=== PATIENT | female | born 1940 | race Caucasian/White ===

== ENCOUNTER → 2017-08-04 15:23 | Outpatient (CLI) | payer MEDICARE, OTHER, SELFPAY ==
--- NOTE | 2017-08-04 15:25 | BI_ITS ---
MAMMOGRAPHY - BILATERAL SCREENING REASON FOR EXAM: Female, 77 years old. Routine annual screening examination. PERTINENT HISTORY: Non-contributory. TECHNIQUE: Digital bilateral breast damari (3D mammographic acquisition) in the CC and MLO projections. 2-D mediolateral oblique (MLO) and craniocaudad (CC) views of both breasts were obtained. CAD: Full Field Digital Mammography with Computer Added Detection was performed. COMPARISON: Comparison is made with prior study dated July 22, 2016 and December 18, 2014. FINDINGS: Breast Composition: The breasts are heterogeneously dense, which may obscure small masses. There are no dominant masses or suspicious calcifications. Stable scattered bilateral calcifications. No other significant abnormalities are identified. There has been no significant change since the prior study. BI/SCREENING MAMM (CAD), BILAT IMPRESSION: Stable bilateral screening mammogram. Yearly follow-up mammogram recommended. (A) ASSESSMENT CATEGORY: BIRADS Category 2: Benign. A letter regarding these results will be sent to the patient by the facility within 30 days. Approximately 10% of breast cancers are not detected by mammography. A normal mammogram should not delay biopsy of a clinically suspicious abnormality. [id number] Electronically Signed: Clovis Dick MD at 10:49 EDT Tel [phone], Service support ,
== END ==
PROVIDERS: Family Provider Family Medicine; PCP Family Medicine; Visit Provider Family Medicine
DX: Z12.31 Encounter for screening mammogram for malignant neoplasm of breast (principal)
CPT/HCPCS: 77063; 77067

== ENCOUNTER → 2017-12-28 11:24 | Outpatient (CLI) | payer MEDICARE, OTHER, SELFPAY ==
[2017-12-28 13:59] LABS: Absolute Lymphocyte Count 1.72 X10^3/ul (0.83-4.51); Absolute Neutrophil Count 3.3 X10^3/uL (2.0-7.7); Basophil# 0.03 X10^3/uL; Basophil% 0.5 % (0-1); Eosinophils% 3.4 % (0-5); Hematocrit 45.6 % (37-47); Hemoglobin 14.5 g/dl (12.0-15.0); Lymphocyte # 1.72 X10^3/ul (4.0); Lymphocyte % 29.5 % (19-41); Mean Corp Hgb Conc 31.8 g/gl (32-36); Mean Corpuscular Hgb 28.7 pg (27.0-32.0); Mean Corpuscular Volume 90.1 fL (81-99); Mean Platelet Vol. 10.9 fl (6.2-12.0); Monocyte# 0.54 X10^3/uL; Monocyte% 9.2 % (0-10); Neutrophil # 3.34 X10^3/uL (2.7-7.7); Neutrophil % 57.2 % (47-70); Platelet Count 192 K/mm3 (150-450); RBC Distribution Width CV 15.1 % (11.6-14.6); RBC Distribution Width SD 49.5 fl (35.1-43.9); Red Blood Count 5.06 M/mm3 (4.2-5.4); White Blood Count 5.8 K/mm3 (4.4-11.0)
[2017-12-28 14:03] LABS: POSITIVE COUNT NO; POSITIVE DIFFERENTIAL NO; POSITIVE MORPHOLOGY NO
[2017-12-28 14:27] LABS: Anion Gap 10 (5-15); BUN 20 mg/dL (7-18); BUN/Creat Ratio 25.9 RATIO (10-20); Calcium,Total 8.9 mg/dL (8.5-10.1); Chloride 107 mmol/L (98-107); Cholesterol 158 mg/dL (200); Creatinine, Serum 0.77 mg/dL (0.55-1.02); EST Glomerular Filtration Rate 77 mL/min (>60); Est Glom Filt Rate - Afr Amer 93 mL/min (>60); Glucose 77 mg/dL (74-106); High Density Lipoprotein 61 mg/dL; Potassium 4.1 mmol/L (3.5-5.1); Sodium Level 144 mmol/L (136-145); Thyroid Stim Hormone (TSH) 0.27 uIU/mL (0.358-3.74); Triglycerides 76 mg/dL; Very Low Density Lipoprotein 15 mg/dL (5-40)
[2017-12-29 08:34] LABS: Vitamin D,25 Hydroxy 14.1 ng/mL (29.95-100.01)
== END ==
PROVIDERS: Family Provider Family Medicine; PCP Family Medicine; Visit Provider Family Medicine
DX: E78.00 Pure hypercholesterolemia, unspecified (principal); I10 Essential (primary) hypertension; E03.9 Hypothyroidism, unspecified
CPT/HCPCS: 36415; 80048; 80061; 82306; 84443; 85025

== ENCOUNTER 2018-01-08 04:38 | Emergency (ER) | payer MEDICARE, OTHER, SELFPAY ==
[2018-01-08 04:39] VITALS: BP 178/112; PULSE 75; RESP 18; TEMP 36.2; O2SAT 98; BMI 29.7
--- NOTE | 2018-01-08 04:46 | CT_ITS ---
STUDY: CT ABDOMEN AND PELVIS WITHOUT CONTRAST REASON FOR EXAM: Female, 77 years old. Flank pain RADIATION DOSAGE (If Supplied By Facility): CTDIvol = ( 10.95 ) mGy, DLP = ( 549.79 ) mGycm TECHNIQUE: Transaxial images were obtained from the dome of the diaphragm to the symphysis pubis without oral contrast, and without intravenous contrast. Sagittal and coronal images were reconstructed. Individualized dose optimization techniques were used for this CT. COMPARISON: None. FINDINGS: The visualized lung bases are unremarkable. The visualized portions of the heart are within normal limits. Normal liver. There are gallstones. There is NO cholecystitis or biliary ductal dilatation. Normal spleen. Normal pancreas. Normal bilateral adrenal glands. There is a 6 x 8 mm stone in the proximal LEFT ureter causing LEFT hydronephrosis. 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 Largest is on the LEFT measuring 2 cm. Normal visualized stomach. Normal small intestine. There is diverticulosis of the sigmoid and LEFT colon. There is NO diverticulitis or colitis. The appendix is visualized and appears normal. Normal abdominal aorta. Normal inferior vena cava. Normal retroperitoneum. Normal urinary bladder. There has been a hysterectomy. There is NO ascites or free air, abscess or adenopathy. Normal abdominal wall. Normal osseous structures. CT/Abdomen/Pelvis without Cont IMPRESSION: There are gallstones. There is NO cholecystitis or biliary ductal dilatation. There is a 6 x 8 mm stone in the proximal LEFT ureter causing LEFT hydronephrosis. 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 Largest is on the LEFT measuring 2 cm. There is diverticulosis of the sigmoid and LEFT colon. There is NO diverticulitis or colitis. The appendix is visualized and appears normal. There has been a hysterectomy. There is NO ascites or free air, abscess or adenopathy. Electronically Signed: Juventino Peck MD at 5:40 EDT , Service support ,
--- NOTE | 2018-01-08 04:48 | ED.VISSUMM ---
- ER Visit Summary Date of Service: 01/08/18 Chief Complaint: Left flank pain History of Present Illness: The patient is a 77 F sudden left flank pain awakening her at 3 AM. Pain radiates to the groin. It has been intermittent however more intense, 7-8 out of 10. No urinary symptoms. History of kidney stones years ago states had lithotripsy previously. This is 15 years ago. That was her first stone. History of hypertension, hypercholesterolemia. No history of gastric ulcers or kidney injury. No fevers. Nausea with dry heaving. No allergies. Patient does take baby aspirin. Physical Examination: General: Alert and oriented ?3, no acute distress HEENT: Normocephalic, atraumatic. Moist mucosa membranes Neck: supple, nontender. Cardiovascular: Regular rate and rhythm, no murmurs Respiratory: Normal breath sounds, symmetric, no distress Abdomen: Soft, nontender, nondistended, no guarding or rebound Back: No CVA tenderness, no rash. Extremities: Nontender, no edema, pulses intact ?4 Neuro: no focal neurological deficits. Test Results: White count 9.6. Hemoglobin 14.5. Platelets 215. Creatinine 0.91. Urine leukocytes 25, blood 250. White blood cell count 0-5. Urine culture sent. CT scan abdomen pelvis 6 x 8 mm proximal left urolithiasis with hydronephrosis. Emergency Department Course and Treatment: Patient flank pain radiating suddenly. Renal stone protocol initiated. Fluids Zofran Toradol morphine given. Pain controlled. Workup notes proximal urolithiasis left side 6 x 8 mm. She started on Flomax. Urine only showed 25 leukocytes. No symptoms. Urine culture sent. Discussed with covering urologist Dr. Bobby, updated on size and location. States typically would do intervention however with symptoms control will plan on outpatient. Patient will call on Wednesday. Prescriptions written for symptom control. Signs and symptoms discussed to return. All questions were answered. Treatment Plan: [] Disposition: Discharge Impression: 1. Left urolithiasis This note was generated with [employer] dictation software. It may contain incorrect words, spelling, and punctuation that were not noted in review of the chart prior to signing ED Disposition - Plan for ED Patient: Disposition: Home or Assisted Living Chief Complaint: Flank Pain Diagnosis: Urolithiasis Instructions: ED Stone Renal W Colic Prescriptions: Oxycodone HCl/Acetaminophen [Percocet 5/325] 1 tablet PO Q6H PRN PRN 3 Days #12 tablet PRN Reason: Pain Ondansetron [Zofran Odt] 8 mg PO Q8H PRN PRN #10 tab PRN Reason: Nausea Docusate Sodium [Colace] 100 mg PO DAILY #20 capsule Naproxen [Naprosyn] 500 mg PO BID PRN #20 tablet Tamsulosin HCl [Flomax] 0.4 mg PO DAILY #7 cap.er.24h Referrals: Chris Mora MD [Primary Care Provider] - Cecy Bobby MD [STAFF PHYSICIAN] - 2 Days Additional Instructions: 8 x 6 mm proximal ureteral lithiasis. Take medications as prescribed. Call on Wednesday for follow-up. Return if any worsening symptoms.
[2018-01-08 04:54] LABS: Absolute Lymphocyte Count 2.38 X10^3/ul (0.83-4.51); Absolute Neutrophil Count 5.7 X10^3/uL (2.0-7.7); Basophil# 0.11 X10^3/uL; Basophil% 1.2 % (0-1); Eosinophil# 0.29 X10^3/uL; Hematocrit 44.1 % (37-47); Hemoglobin 14.5 g/dl (12.0-15.0); Lymphocyte # 2.38 X10^3/ul (4.0); Lymphocyte % 24.9 % (19-41); Mean Corp Hgb Conc 32.9 g/gl (32-36); Mean Corpuscular Hgb 29.3 pg (27.0-32.0); Mean Corpuscular Volume 89.1 fL (81-99); Mean Platelet Vol. 10.4 fl (6.2-12.0); Monocyte# 1.04 X10^3/uL; Monocyte% 10.9 % (0-10); Neutrophil # 5.71 X10^3/uL (2.7-7.7); Neutrophil % 59.8 % (47-70); Platelet Count 215 K/mm3 (150-450); RBC Distribution Width CV 14.9 % (11.6-14.6); RBC Distribution Width SD 48.2 fl (35.1-43.9); Red Blood Count 4.95 M/mm3 (4.2-5.4); White Blood Count 9.6 K/mm3 (4.4-11.0)
[2018-01-08 04:55] LABS: POSITIVE COUNT NO; POSITIVE DIFFERENTIAL NO; POSITIVE MORPHOLOGY NO
[2018-01-08] MEDS: Ondansetron 4 MG/2 ML Vial IV (04:56)
[2018-01-08] MEDS: 0.9% Normal Saline 1,000 ML 250 ML IV (04:56)
[2018-01-08] MEDS: Ketorolac 30 MG/ML Syringe IV (04:56)
[2018-01-08] MEDS: Morphine 4 MG/ML Syringe IV (04:57)
[2018-01-08 05:14] LABS: Anion Gap 9 (5-15); BUN 20 mg/dL (7-18); BUN/Creat Ratio 21.9 RATIO (10-20); Calcium,Total 9.1 mg/dL (8.5-10.1); Chloride 105 mmol/L (98-107); Creatinine, Serum 0.91 mg/dL (0.55-1.02); EST Glomerular Filtration Rate 63 mL/min (>60); Est Glom Filt Rate - Afr Amer 77 mL/min (>60); Estimated Creatinine Clearance 42.83 ml/min; Glucose 111 mg/dL (74-106); Potassium 3.8 mmol/L (3.5-5.1); Sodium Level 143 mmol/L (136-145)
[2018-01-08 05:47] LABS: Mucous, Urine 0 SEEN /hpf (<or=2+)
[2018-01-08 05:50] LABS: Color, Urine Yellow (Yellow); Glucose, Dipstick Normal (Normal); Ketone-Dipstick Negative (Negative); Leukocyte Esterase-Dipstick 25 /ul (Negative); Nitrite-Dipstick Negative (Negative); Occult Blood-Urine 250 /ul (Negative); Protein-Dipstick 30 mg/dl (Negative); Specific Gravity, Urine 1.025 (1.002-1.030); Urine Bilirubin Dipstick Negative (Negative); Urine Clarity Cloudy (Clear); Urine Urobilinogen Normal (Normal)
[2018-01-08 05:57] LABS: Squamous Epithelial Cells - UA 0-5 SEEN /hpf (5-10)
[2018-01-08 05:58] LABS: Hyaline Cast 0-5 SEEN /lpf (0-5)
[2018-01-08] MEDS: Tamsulosin HCl 0.4 MG Capsule PO (05:59)
[2018-01-08 06:01] LABS: Bacteria 1+ /hpf (None Seen); Red Blood Cells-Urine > 100 SEEN /hpf (0-5); White Blood Cells 0-5 SEEN /hpf (0-5)
[2018-01-08 06:22] VITALS: BP 139/86; PULSE 68; RESP 18; O2SAT 98
== END 2018-01-08 06:33 | disposition home or self-care (01) ==
PROVIDERS: Emergency Provider Emergency Medicine; Family Provider Family Medicine; PCP Family Medicine
DX: N13.2 Hydronephrosis with renal and ureteral calculous obstruction (principal); Z87.442 Personal history of urinary calculi; I10 Essential (primary) hypertension; E78.00 Pure hypercholesterolemia, unspecified; Z79.82 Long term (current) use of aspirin; Z79.899 Other long term (current) drug therapy
CPT/HCPCS: 74176; 80048; 81001; 85025; 87086; 87088; 96361; 96374; 96375; 99285; J7030; J2405

== ENCOUNTER → 2018-01-11 15:13 | Outpatient (CLI) | payer MEDICARE, OTHER, SELFPAY ==
--- NOTE | 2018-01-11 15:17 | RAD_ITS ---
STUDY: X-RAY - ABDOMEN/PELVIS REASON FOR EXAM: Female, 77 years old. Ureteral stone. TECHNIQUE: Two AP supine views of the abdomen and pelvis. COMPARISON: CT abdomen and pelvis January 08, 2018. FINDINGS: Poorly visualized lung bases. There is an unremarkable bowel gas pattern. There is no demonstrated free abdominal air. Lamellated 3.8 x 2.3 cm rim calcified structure in the right upper quadrant correlates to the gallstone noted on prior CT. There are 2 small calcifications projecting to the left of the L4-5 interspace, one measuring right-9 mm and the other measuring 3-4 mm. Either of these may correlate to the stone seen in the left ureter on CT, having progressed a few centimeters distally since that exam. The visualized liver, spleen and kidneys are otherwise grossly normal in size and morphology. There are faint calcified phleboliths in the pelvis. There are stable degenerative changes of the lower lumbar spine, left sacroiliac joint, and pubic symphysis. RAD/Abdomen Single View IMPRESSION: 1. Calcifications to the left of the L4-5 disc space, the larger likely correlating to the left ureteral stone seen by CT, now having progressed a few centimeters since that exam. 2. Lamellated rim calcified 3.8 cm gallstone again identified. 3. Nonspecific bowel gas pattern. Electronically Signed: Russ Pimentel MD at 16:24 EDT , Service support ,
== END ==
PROVIDERS: Family Provider Family Medicine; PCP Family Medicine; Visit Provider Urology
DX: N20.1 Calculus of ureter (principal); K80.80 Other cholelithiasis without obstruction
CPT/HCPCS: 74018

== ENCOUNTER → 2018-01-17 11:35 | Outpatient (CLI) | payer MEDICARE, OTHER, SELFPAY ==
--- NOTE | 2018-01-17 11:39 | RAD_ITS ---
STUDY: X-RAY - ABDOMEN/PELVIS REASON FOR EXAM: Female, 77 years old. Left kidney stone. TECHNIQUE: Two AP supine views of the abdomen and pelvis. COMPARISON: Comparison is made with prior study dated January 11, 2018. FINDINGS: There is a moderate amount of colonic fecal material. Stable calcified. The previously seen calcification overlying the transverse processes of the L4 vertebrae is not seen at this time. It presently seen in the left hemipelvis most likely at the left ureterovesical junction. This measures 3.5 mm. Normal soft tissue structures. Normal visualized osseous structures. RAD/Abdomen Single View IMPRESSION: 3.5 mm calcific density in the left hemipelvis most likely within the distal left ureter. Clinical correlation is recommended. Electronically Signed: Clovis Dick MD at 15:21 EDT Tel [phone], Service support ,
== END ==
PROVIDERS: Family Provider Family Medicine; PCP Family Medicine; Visit Provider Urology
DX: N20.0 Calculus of kidney (principal)
CPT/HCPCS: 74018

== ENCOUNTER → 2018-02-21 12:57 | Outpatient (CLI) | payer MEDICARE, OTHER, SELFPAY | PROVIDERS: Family Provider Family Medicine; PCP Family Medicine; Visit Provider Urology | DX: Z01.818 Encounter for other preprocedural examination (principal) ==

== ENCOUNTER → 2018-03-23 14:44 | Outpatient (CLI) | payer MEDICARE, OTHER, SELFPAY ==
--- OUTSIDE RECORDS SUMMARY | 2018-05-19 00:48 | XMS RPT_ITS ---
:1940 Author Organization OHIP Support Name Relationship Address Phone SHARIF DORADO Unavailable [address] + [place] [address] KIERA DORADO Unavailable Unavailable + R Unavailable Unavailable Unavailable SHARIF DORADO Unavailable [address] + [place] [address] KIERA DORADO Unavailable Unavailable + R Unavailable Unavailable Unavailable SHARIF DORADO Unavailable [address] + [place] [address] KIERA DORADO Unavailable Unavailable + R Unavailable Unavailable Unavailable PHILL CASTILLOA Unavailable [address] + [place] [address] SHARIF DORADO Unavailable [address] + [place] [address] R Unavailable Unavailable Unavailable PHILL CASTILLOA Unavailable [address] + [place] [address] SHARIF DORADO Unavailable [address] + [place] [address] R Unavailable Unavailable Unavailable PHILL CASTILLOA Unavailable [address] + [place] [address] SHARIF DORADO Unavailable [address] + [place] [address] R Unavailable Unavailable Unavailable PHILL CASTILLOA Unavailable [address] + [place] [address] SHARIF DORADO Unavailable [address] + [place] [address] R Unavailable Unavailable Unavailable Care Team Providers Name Role Phone Chris Mora Attending Unavailable Chris Mora Referring Unavailable Chris Mora Primary Care Unavailable Chris Mora Attending Unavailable Chris Mora Primary Care Unavailable Chris Mora Primary Care Unavailable Low Cooper Attending Unavailable Cecy Bobby Attending Unavailable Cecy Bobby Referring Unavailable Chris Mora Primary Care Unavailable Cecy Bobby Attending Unavailable Cecy Bobby Referring Unavailable Chris Mora Primary Care Unavailable Cecy Bobby Attending Unavailable Cecy Bobby Referring Unavailable Chris Mora Primary Care Unavailable Chris Mora Attending Unavailable Chris Mora Primary Care Unavailable PROBLEMS PROBLEMS DATE TYPE CONDITION / CODE ATTENDING STATUS SOURCE 01/17/2018 Unknown N20.0 - Calculus Cecy Bobby Active [facility] Community N20.0(ICD-10) Hospital Repository 01/11/2018 Unknown N20.1 - Calculus Cecy Bobby Active [facility] of ureter / Community N20.1(ICD-10) Hospital Repository 01/08/2018 Unknown N20.9 - Urinary Le, Low Active [facility] calculus, Community unspecified / Hospital N20.9(ICD-10) Repository PROCEDURES PROCEDURES No Procedure Records FoundRESULTS RESULTS VITAMIN D,25 HYDROXY Collected: 03/23/2018 Status: F Source: [place] 2:45 PM [facility] Order Comment: Order Date: 12/31/17 Order Info: 42998-8 - VITD25 TYPE CODE TESTS RESULT OUT OF RANGE REFERENCE UNITS LAB L506.1000 29.95-100.01 ng/mL Normal Vitamin D 36.0 25-OH Result Comment: Vitamin D 25(OH) Status Range Deficiency <20 ng/mL (50nmol/L) Insuffciency 20 - 30 ng/mL (50 - 75 nmol/L) Sufficiency 30 - 100 ng/mL (75 - 250 nmol/L) Toxicity >100 ng/mL (>250 nmol/L) Performed By: #### L506.1000 #### [facility] [address] [place], [address] ABDOMEN SINGLE VIEW Observed: 01/17/2018 Status: F Source: [place] 11:40 AM [facility] Imaging Services [address] [place] [address] Abdomen Single View MR#: [id number] Acct: [id number] Name: BENITA DORADO Rep #: [id number] : 1940 F 77 From: Clovis Dick MD PCP: Chris Mora MD Status: REG CLI Study: Abdomen Single View Date of Exam: 01/17/18 Exam# [id number] Ordering Dr: Cecy Bobby MD STUDY: X-RAY - ABDOMEN/PELVIS REASON FOR EXAM: Female, 77 years old. Left kidney stone. TECHNIQUE: Two AP supine views of the abdomen and pelvis. COMPARISON: Comparison is made with prior study dated January 11, 2018. FINDINGS: There is a moderate amount of colonic fecal material. Stable calcified. The previously seen calcification overlying the transverse processes of the L4 vertebrae is not seen at this time. It presently seen in the left hemipelvis most likely at the left ureterovesical junction. This measures 3.5 mm. Normal soft tissue structures. Normal visualized osseous structures. RAD/Abdomen Single View IMPRESSION: 3.5 mm calcific density in the left hemipelvis most likely within the distal left ureter. Clinical correlation is recommended. Electronically Signed: Clovis Dick MD at 15:21 EDT Tel [phone], Service support , CC: Cecy Bobby MD; Chris Mora MD Selling Underwriter: Signed ABDOMEN SINGLE VIEW Observed: 01/11/2018 Status: F Source: [place] 3:17 PM [facility] Imaging Services [address] [place] [address] Abdomen Single View MR#: [id number] Acct: [id number] Name: BENITA DORADO Rep #: [id number] : 1940 F 77 From: Germain Pimentel MD PCP: Chris Mora MD Status: REG CLI Study: Abdomen Single View Date of Exam: 01/11/18 Exam# [id number] Ordering Dr: Cecy Bobby MD STUDY: X-RAY - ABDOMEN/PELVIS REASON FOR EXAM: Female, 77 years old. Ureteral stone. TECHNIQUE: Two AP supine views of the abdomen and pelvis. COMPARISON: CT abdomen and pelvis January 08, 2018. FINDINGS: Poorly visualized lung bases. There is an unremarkable bowel gas pattern. There is no demonstrated free abdominal air. Lamellated 3.8 x 2.3 cm rim calcified structure in the right upper quadrant correlates to the gallstone noted on prior CT. There are 2 small calcifications projecting to the left of the L4-5 interspace, one measuring right-9 mm and the other measuring 3-4 mm. Either of these may correlate to the stone seen in the left ureter on CT, having progressed a few centimeters distally since that exam. The visualized liver, spleen and kidneys are otherwise grossly normal in size and morphology. There are faint calcified phleboliths in the pelvis. There are stable degenerative changes of the lower lumbar spine, left sacroiliac joint, and pubic symphysis. RAD/Abdomen Single View IMPRESSION: 1. Calcifications to the left of the L4-5 disc space, the larger likely correlating to the left ureteral stone seen by CT, now having progressed a few centimeters since that exam. 2. Lamellated rim calcified 3.8 cm gallstone again identified. 3. Nonspecific bowel gas pattern. Electronically Signed: Russ Pimentel MD at 16:24 EDT , Service support , CC: Cecy Bobby MD; Chris Mora MD Selling Underwriter: Signed EMERGENCY DEPARTMENT Observed: 01/08/2018 Status: F Source: [place] SUMMARY 6:25 AM [facility] Medical Records Department [address] [place] [address] Emergency Department Summary 01/08/18 0448 MR#: [id number] Acct: [id number] Name: BENITA DORADO Rep #: [id number] : 1940 77 From: Low Norton PCP: Chris Mora MD Status: REG ER - ER Visit Summary Date of Service: 01/08/18 Chief Complaint: Left flank pain History of Present Illness: The patient is a 77 F sudden left flank pain awakening her at 3 AM. Pain radiates to the groin. It has been intermittent however more intense, 7-8 out of 10. No urinary symptoms. History of kidney stones years ago states had lithotripsy previously. This is 15 years ago. That was her first stone. History of hypertension, hypercholesterolemia. No history of gastric ulcers or kidney injury. No fevers. Nausea with dry heaving. No allergies. Patient does take baby aspirin. Physical Examination: General: Alert and oriented 3, no acute distress HEENT: Normocephalic, atraumatic. Moist mucosa membranes Neck: supple, nontender. Cardiovascular: Regular rate and rhythm, no murmurs Respiratory: Normal breath sounds, symmetric, no distress Abdomen: Soft, nontender, nondistended, no guarding or rebound Back: No CVA tenderness, no rash. Extremities: Nontender, no edema, pulses intact 4 Neuro: no focal neurological deficits. Test Results: White count 9.6. Hemoglobin 14.5. Platelets 215. Creatinine 0.91. Urine leukocytes 25, blood 250. White blood cell count 0-5. Urine culture sent. CT scan abdomen pelvis 6 x 8 mm proximal left urolithiasis with hydronephrosis. Emergency Department Course and Treatment: Patient flank pain radiating suddenly. Renal stone protocol initiated. Fluids Zofran Toradol morphine given. Pain controlled. Workup notes proximal urolithiasis left side 6 x 8 mm. She started on Flomax. Urine only showed 25 leukocytes. No symptoms. Urine culture sent. Discussed with covering urologist Dr. Bobby, updated on size and location. States typically would do intervention however with symptoms control will plan on outpatient. Patient will call on Wednesday. Prescriptions written for symptom control. Signs and symptoms discussed to return. All questions were answered. Treatment Plan: [] Disposition: Discharge Impression: 1. Left urolithiasis This note was generated with Tagora dictation software. It may contain incorrect words, spelling, and punctuation that were not noted in review of the chart prior to signing ED Disposition - Plan for ED Patient: Disposition: Home or Assisted Living Chief Complaint: Flank Pain Diagnosis: Urolithiasis Instructions: ED Stone Renal W Colic Prescriptions: Oxycodone HCl/Acetaminophen [Percocet 5/325] 1 tablet PO Q6H PRN PRN 3 Days #12 tablet PRN Reason: Pain Ondansetron [Zofran Odt] 8 mg PO Q8H PRN PRN #10 tab PRN Reason: Nausea Docusate Sodium [Colace] 100 mg PO DAILY #20 capsule Naproxen [Naprosyn] 500 mg PO BID PRN #20 tablet Tamsulosin HCl [Flomax] 0.4 mg PO DAILY #7 cap.er.24h Referrals: Chris Mora MD [Primary Care Provider] - Cecy Bobby MD [STAFF PHYSICIAN] - 2 Days Additional Instructions: 8 x 6 mm proximal ureteral lithiasis. Take medications as prescribed. Call on Wednesday for follow-up. Return if any worsening symptoms. What to do if you have Problems For any increased pain, shortness of breath, bleeding, nausea or vomiting, chest pain, or any unexpected problems, contact your Primary Care Provider. Call [facility] ([phone]) or report to the closest Emergency Room. Call 911 if necessary. 01/08/18 0625 <Electronically signed by Low Norton> Date Low Norton Cosigner Signature (If Indicated): Date CC: Chris Mora MD URINALYSIS, COMPLETE Collected: 01/08/2018 Status: F Source: [place] 5:40 AM [facility] Order Comment: How was Urine Obtained? CLEAN CATCH TYPE CODE TESTS RESULT OUT OF RANGE REFERENCE UNITS LAB L400.3000 Yellow COLOR Normal Yellow LAB L400.3050 Clear Normal CLARITY Cloudy LAB L400.3200 Normal mg/dl Normal GLUCOSE, UR Normal LAB L400.3300 Negative mg/dL Normal BILIRUBIN URINE Negative LAB L400.3400 Negative mg/dl Normal KETONE UR Negative LAB L400.3465 1.002-1.030 Normal SP.GR. DIPSTX 1.025 LAB L400.3550 5.0 - 8.0 pH UR Normal 5.0 LAB L400.3600 Negative mg/dl High PROT 30 DIPSTX LAB L400.3700 Normal mg/dl Normal UROBILI Normal LAB L400.3750 Negative Normal NITRITE UR Negative LAB L400.3780 Negative /ul High OCCULT BLOOD-UR 250 LAB L400.3800 Negative /ul High LEUK 25 ESTERASE LAB L400.4050 0-5 /hpf WBC Normal 0-5 SEEN LAB L400.4100 0-5 /hpf > Normal RBC-UA 100 SEEN LAB L400.4150 5-10 /hpf SQUAM Normal EPI 0-5 SEEN LAB L400.4300 None Seen /hpf 1+ Normal BACTERIA LAB L400.4350 <or=2+ /hpf 0 Normal MUCUS, URINE SEEN LAB L400.4400 0-5 /lpf Normal HYALINE CAST 0-5 SEEN Performed By: #### L400.0001 #### [facility] [address] [place], [address] Observed: 01/08/2018 Status: F Source: [place] CULTURE, URINE 5:40 AM [facility] Urine Culture ORGANISM 1: Gram negative gautam [place] Count <1000 ORGANISM 2: Mixed Gram Positive Organisms [place] Count >100,000 MIX CULTURE Mixed contaminants. Submit a new specimen if indicated. Performed By: #### M100.0650 #### [facility] [address] [place], [address] ABDOMEN/PELVIS WITHOUT Observed: 01/08/2018 Status: F Source: [place] CONT 4:47 AM [facility] Imaging Services [address] [place] [address] Abdomen/Pelvis without Cont MR#: [id number] Acct: [id number] Name: BENITA DORADO Rep #: [id number] : 1940 F 77 From: Juventino Peck PCP: Chris Mora MD Status: REG ER Study: Abdomen/Pelvis without Cont Date of Exam: 01/08/18 Exam# [id number] Ordering Dr: Lwo Cooper DO STUDY: CT ABDOMEN AND PELVIS WITHOUT CONTRAST REASON FOR EXAM: Female, 77 years old. Flank pain RADIATION DOSAGE (If Supplied By Facility): CTDIvol = ( 10.95 ) mGy, DLP = ( 549.79 ) mGycm TECHNIQUE: Transaxial images were obtained from the dome of the diaphragm to the symphysis pubis without oral contrast, and without intravenous contrast. Sagittal and coronal images were reconstructed. Individualized dose optimization techniques were used for this CT. COMPARISON: None. FINDINGS: The visualized lung bases are unremarkable. The visualized portions of the heart are within normal limits. Normal liver. There are gallstones. There is NO cholecystitis or biliary ductal dilatation. Normal spleen. Normal pancreas. Normal bilateral adrenal glands. There is a 6 x 8 mm stone in the proximal LEFT ureter causing LEFT hydronephrosis. 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 Largest is on the LEFT measuring 2 cm. Normal visualized stomach. Normal small intestine. There is diverticulosis of the sigmoid and LEFT colon. There is NO diverticulitis or colitis. The appendix is visualized and appears normal. Normal abdominal aorta. Normal inferior vena cava. Normal retroperitoneum. Normal urinary bladder. There has been a hysterectomy. There is NO ascites or free air, abscess or adenopathy. Normal abdominal wall. Normal osseous structures. CT/Abdomen/Pelvis without Cont IMPRESSION: There are gallstones. There is NO cholecystitis or biliary ductal dilatation. There is a 6 x 8 mm stone in the proximal LEFT ureter causing LEFT hydronephrosis. 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 Largest is on the LEFT measuring 2 cm. There is diverticulosis of the sigmoid and LEFT colon. There is NO diverticulitis or colitis. The appendix is visualized and appears normal. There has been a hysterectomy. There is NO ascites or free air, abscess or adenopathy. Electronically Signed: Juventino Peck MD at 5:40 EDT , Service support , CC: Chris Mora MD; Low Cooper Selling Underwriter: Signed CBC W/DIFF, AUTOMATED Collected: 01/08/2018 Status: F Source: [place] 4:44 AM [facility] TYPE CODE TESTS RESULT OUT OF RANGE REFERENCE UNITS LAB L100.1000 4.4-11.0 K/mm3 Normal WBC 9.6 LAB L100.1200 4.2-5.4 M/mm3 Normal RBC 4.95 LAB L100.1300 12.0-15.0 g/dl Normal HGB 14.5 LAB L100.1400 37-47 % Normal HCT 44.1 LAB L100.1500 81-99 fL Normal MCV 89.1 LAB L100.1600 27.0-32.0 pg Normal MCH 29.3 LAB L100.1700 32-36 g/gl Normal MCHC 32.9 LAB L100.1810 11.6-14.6 % High RDW CV 14.9 LAB L100.1820 35.1-43.9 fl High RDW SD 48.2 LAB L100.1900 150-450 K/mm3 Normal PLT 215 LAB L100.2000 6.2-12.0 fl Normal MPV 10.4 LAB L100.2100 47-70 % Normal NEUT% 59.8 LAB L100.2200 19-41 % Normal LY% 24.9 LAB L100.2300 0-10 % High MONO% 10.9 LAB L100.2400 0-5 % Normal EO% 3.0 LAB L100.2500 0-1 % High BASO% 1.2 LAB L100.2550 0.0-0.9 % Normal IM GRAN % 0.200 Result Comment: IG% - Immature Granulocytes (promyelocytes, myelocytes and metamyelocytes) > 1% indicates that a LEFT SHIFT is Present. LAB L100.2620 2.0-7.7 X10 3/uL Normal Absolute Neut 5.7 LAB L100.2720 0.83-4.51 X10 3/ul Normal Absolute Lymph 2.38 Performed By: #### L100.0100 #### [facility] [address], [address] BASIC METABOLIC Collected: 01/08/2018 Status: F Source: [place] PROFILE (BMP) 4:44 AM [facility] TYPE CODE TESTS RESULT OUT OF RANGE REFERENCE UNITS LAB L501.0100 74-106 mg/dL High GLU 111 Result Comment: Fasting Glucose result from 100 to 125 mg/dL suggests IMPAIRED HOMEOSTASIS per A.D.A. criteria. Please note revised GLUCOSE reference range effective 2017. LAB L501.1000 7-18 mg/dL High BUN 20 LAB L501.1100 0.55-1.02 mg/dL Normal CREAT,SERUM 0.91 Result Comment: The validity of the calculated GFR AND GFRAA in patients over 70 years has not been determined. Clinical correlation is essential. LAB L501.1110 >60 mL/min Normal EST GFR 63 Result Comment: Non- GFR Calc LAB L501.1115 >60 mL/min Normal EST GFR - AA 77 Result Comment: GFR Calc LAB L501.1255 ml/min Normal Estimated CRCL 42.83 LAB L501.1300 10-20 RATIO High BUN/CRE 21.9 LAB L501.2200 8.5-10 mg/dL Normal .1 CA 9.1 LAB L501.5300 136-14 mmol/L Normal 5 NA 143 LAB L501.5600 3.5-5. mmol/L Normal 1 K 3.8 LAB L501.5900 98-107 mmol/L Normal CL 105 LAB L501.6100 21.0-3 mmol/L Normal 2.0 CO2 29.0 LAB L501.6200 5-15 Normal GAP 9 Performed By: #### L500.2500 #### [facility] [address] [place], [address] CBC W/DIFF, AUTOMATED Collected: 12/28/2017 Status: F Source: [place] 11:25 AM [facility] Order Comment: Order Date: 07/08/17 Order Info: 0184-1 - CBCD TYPE CODE TESTS RESULT OUT OF RANGE REFERENCE UNITS LAB L100.1000 4.4-11.0 K/mm3 Normal WBC 5.8 LAB L100.1200 4.2-5.4 M/mm3 Normal RBC 5.06 LAB L100.1300 12.0-15.0 g/dl Normal HGB 14.5 LAB L100.1400 37-47 % Normal HCT 45.6 LAB L100.1500 81-99 fL Normal MCV 90.1 LAB L100.1600 27.0-32.0 pg Normal MCH 28.7 LAB L100.1700 32-36 g/gl Low MCHC 31.8 LAB L100.1810 11.6-14.6 % High RDW CV 15.1 LAB L100.1820 35.1-43.9 fl High RDW SD 49.5 LAB L100.1900 150-450 K/mm3 Normal PLT 192 LAB L100.2000 6.2-12.0 fl Normal MPV 10.9 LAB L100.2100 47-70 % Normal NEUT% 57.2 LAB L100.2200 19-41 % Normal LY% 29.5 LAB L100.2300 0-10 % Normal MONO% 9.2 LAB L100.2400 0-5 % Normal EO% 3.4 LAB L100.2500 0-1 % Normal BASO% 0.5 LAB L100.2550 0.0-0.9 % Normal IM GRAN % 0.200 Result Comment: IG% - Immature Granulocytes (promyelocytes, myelocytes and metamyelocytes) > 1% indicates that a LEFT SHIFT is Present. LAB L100.2620 2.0-7.7 X10 3/uL Normal Absolute Neut 3.3 LAB L100.2720 0.83-4.51 X10 3/ul Normal Absolute Lymph 1.72 Performed By: #### L100.0100, L500.2500, L500.4100, L501.9520, L506.1000 #### [facility] [address] [place], [place], [address] BASIC METABOLIC Collected: 12/28/2017 Status: F Source: [place] PROFILE ([facility]) 11:25 AM [facility] Order Comment: Order Date: 07/08/17 Order Info: 0667-1 - BMP Order Info: 74315-4 - LIPID Order Info: 3016-3 - TSH TYPE CODE TESTS RESULT OUT OF RANGE REFERENCE UNITS LAB L501.0100 74-106 mg/dL Normal GLU 77 Result Comment: Please note revised GLUCOSE reference range effective 2017. LAB L501.1000 7-18 mg/dL High BUN 20 LAB L501.1100 0.55-1.02 mg/dL Normal CREAT,SERUM 0.77 Result Comment: The validity of the calculated GFR AND GFRAA in patients over 70 years has not been determined. Clinical correlation is essential. LAB L501.1110 >60 mL/min Normal EST GFR 77 Result Comment: Non- GFR Calc LAB L501.1115 >60 mL/min Normal EST GFR - AA 93 Result Comment: GFR Calc LAB L501.1300 10-20 RATIO High BUN/CRE 25.9 LAB L501.2200 8.5-10.1 mg/dL CA Normal 8.9 LAB L501.5300 136-145 mmol/L NA Normal 144 LAB L501.5600 3.5-5.1 mmol/L K Normal 4.1 LAB L501.5900 98-107 mmol/L CL Normal 107 LAB L501.6100 21.0-32.0 mmol/L Normal CO2 27.0 LAB L501.6200 5-15 Normal GAP 10 Performed By: #### L100.0100, L500.2500, L500.4100, L501.9520, L506.1000 #### [facility] [address] [place], [address] LIPID PROFILE Collected: 12/28/2017 Status: F Source: [place] 11:25 AM [facility] Order Comment: Order Date: 07/08/17 Order Info: 0667-1 - BMP Order Info: 29228-7 - LIPID Order Info: 3016-3 - TSH TYPE CODE TESTS RESULT OUT OF RANGE REFERENCE UNITS LAB L501.4900 200 mg/dL Normal CHOL 158 Result Comment: <200 mg/dL Desirable 200-240 mg/dL Borderline >240 mg/dL High Risk LAB L501.5000 mg/dL Normal TRIG 76 Result Comment: The drugs N-Acetylcysteine and Metamizole may falsely depress this assay. Serum Triglycerides Reference Interval Normal <150 mg/dL Borderline high 150 - 199 mg/dL High 200 - 499 mg/dL Very High > or = 500 mg/dL LAB L501.6400 mg/dL Normal HDL 61 Result Comment: The drugs N-Acetylcysteine and Metamizole may falsely depress this assay. Reference Range HDL <40 mg/dL Low HDL Cholesterol HDL >or= 60 mg/dL High HDL Cholesterol LAB L501.6500 0-130 mg/dL Normal LDL 82 LAB L501.6600 5-40 mg/dL Normal VLDL 15 Performed By: #### L100.0100, L500.2500, L500.4100, L501.9520, L506.1000 #### [facility] [address] [place], [address] THYROID STIM HORMONE Collected: 12/28/2017 Status: F Source: [place] ([facility]) 11:25 AM [facility] Order Comment: Order Date: 07/08/17 Order Info: 0667-1 - BMP Order Info: 73671-4 - LIPID Order Info: 3016-3 - TSH TYPE CODE TESTS RESULT OUT OF RANGE REFERENCE UNITS LAB L501.9520 0.358-3.74 uIU/mL Low TSH 0.27 Performed By: #### L100.0100, L500.2500, L500.4100, L501.9520, L506.1000 #### [facility] [address] [facility] [place], [address] VITAMIN D,25 HYDROXY Collected: 12/28/2017 Status: F Source: [place] 11:25 AM [facility] Order Comment: Order Date: 07/08/17 Order Info: 96431-0 - VITD25 TYPE CODE TESTS RESULT OUT OF REFERENCE UNITS RANGE LAB L506.1000 29.95-100.01 ng/mL Low Vitamin D 14.1 25-OH Result Comment: Vitamin D 25(OH) Status Range Deficiency <20 ng/mL (50nmol/L) Insuffciency 20 - 30 ng/mL (50 - 75 nmol/L) Sufficiency 30 - 100 ng/mL (75 - 250 nmol/L) Toxicity >100 ng/mL (>250 nmol/L) Performed By: #### L100.0100, L500.2500, L500.4100, L501.9520, L506.1000 #### [facility] [address] [place], [address] SCREENING MAMM (CAD), Observed: 08/04/2017 Status: F Source: [place] BILAT 3:26 PM [facility] Imaging Services [address] [place] [address] SCREENING MAMM (CAD), BILAT MR#: [id number] Acct: [id number] Name: BENITA DORADO Rep #: [id number] : 1940 F 77 From: Clovis Dick MD PCP: Chris Mora MD Status: REG CLI Study: SCREENING MAMM (CAD), BILAT Date of Exam: 08/04/17 Exam# [id number] Ordering Dr: Chris Mora MD MAMMOGRAPHY - BILATERAL SCREENING REASON FOR EXAM: Female, 77 years old. Routine annual screening examination. PERTINENT HISTORY: Non-contributory. TECHNIQUE: Digital bilateral breast damari (3D mammographic acquisition) in the CC and MLO projections. 2-D mediolateral oblique (MLO) and craniocaudad (CC) views of both breasts were obtained. CAD: Full Field Digital Mammography with Computer Added Detection was performed. COMPARISON: Comparison is made with prior study dated July 22, 2016 and December 18, 2014. FINDINGS: Breast Composition: The breasts are heterogeneously dense, which may obscure small masses. There are no dominant masses or suspicious calcifications. Stable scattered bilateral calcifications. No other significant abnormalities are identified. There has been no significant change since the prior study. BI/SCREENING MAMM (CAD), BILAT IMPRESSION: Stable bilateral screening mammogram. Yearly follow-up mammogram recommended. (A) ASSESSMENT CATEGORY: BIRADS Category 2: Benign. A letter regarding these results will be sent to the patient by the facility within 30 days. Approximately 10% of breast cancers are not detected by mammography. A normal mammogram should not delay biopsy of a clinically suspicious abnormality. [id number] Electronically Signed: Clovis Dick MD at 10:49 EDT Tel [phone], Service support , CC: Chris Mora MD Selling Underwriter: Signed ALLERGIES ALLERGIES DATE TYPE / CODE NAME / CODE REACTION SEVERITY SOURCE 01/13/2018 Drug No Known Unknown [place] [facility] Allergy/4160 Allergies/F00 Hospital 98273(SNOMED [id number](RXNOR Repository CT) M) ENCOUNTERS ENCOUNTERS ADMIT/DISCHARGE ACCOUNT ADMITTING ENCOUNTER LOCATION SOURCE NUMBER CLASS 03/23/2018 [id number] [facility] [place] [facility] ing:MFPLAB Repository 02/21/2018 [id number] Ambulatory Darion Sherman 7 [facility] ing:SDC Repository 01/17/2018 [id number] Ambulatory Sherman Sherman 9 [facility] ing:MTRAD Repository 01/11/2018 [id number] Ambulatory Darion Darion 9 [facility] ing:MTRAD Repository 01/08/2018/ [id number] Emergency Darion Darion 8 3 [facility] ing:ED Repository 12/28/2017 [id number] Ambulatory Darion Darion 7 [facility] ing:MFPLAB Repository 08/04/2017 [id number] Ambulatory Darion Darion 6 [facility] ing:OPBI Repository PAYERS PAYERS ENCOUNTER GUARANTOR PAYER SUBSCRIBER SOURCE 03/23/2018 SHARIF A Primary BENITA A Sherman [id number] Insurance:MEDICARE [facility] [id number] Number: Repository [id number]: [phone] [id number] [phone] () Date:2018-03-23 03/23/2018 Secondary BENITA A Sherman Insurance:AARPPolicy KINDERDOB: [facility] Number: [id number] Hospital [id number] Repository Date:9180-20-01[address], [place] [address]QE: 03/23/2018 Tertiary NOT GIVENUNK Sherman Insurance:SELF PAY [facility] Number: Effective Repository Date:2018-03-23 02/21/2018 SHARIF A Primary BENITA A Darion [id number] Insurance:MEDICARE KINDERDOB: [facility] PART A [facility] [id number] Number: Repository [id number]: 330 [id number] [phone] (HP) Date:2018-01-11 02/21/2018 Secondary BENITA A Sherman Insurance:AARPPolicy KINDERDOB: Community Number: [id number] Hospital [id number] Repository Date:1510-51-41YH [id number] [place] [address]CH: 02/21/2018 Tertiary NOT GIVENUNK Darion Insurance:SELF PAY [facility] Number: Effective Repository Date:2018-01-11 01/17/2018 SHARIF A Primary BENITA A Sherman [id number] Insurance:MEDICARE KINDERDOB: [facility] PART A [facility] [id number] Number: Repository [id number]: 330 [id number] [phone] () Date:2018-01-17 01/17/2018 Secondary BENITA A Sherman Insurance:AARPPolicy KINDERDOB: Community Number: [id number] Hospital [id number] Repository Date:5533-37-25UI [id number] [place] [address]SX: 01/17/2018 Tertiary NOT GIVENUNK Darion Insurance:SELF PAY [facility] Number: Effective Repository Date:2018-01-17 01/11/2018 SHARIF A Primary BENITA A Sherman [id number] Insurance:MEDICARE KINDERDOB: [facility] PART A [facility] [id number] Number: Repository [id number]: 330 [id number] [phone] (HP) Date:2018-01-11 01/11/2018 Secondary BENITA A Sherman Insurance:AARPPolicy KINDERDOB: Community Number: [id number] Hospital [id number] Repository Date:3566-85-87IH [facility] [address]505[address], [place] [address]FV: 01/11/2018 Tertiary NOT GIVENUNK Sherman Insurance:SELF PAY [facility] Number: Effective Repository Date:2018-01-11 01/08/2018 SHARIF A Primary BENITA A Darion [id number] Insurance:MEDICARE KINDERDOB: Community DEBBIE PART A [facility] [id number] Number: Repository [id number]: 330 [id number] [phone] (HP) Date:2018-01-08 01/08/2018 Secondary BENITA A Darion Insurance:AARPPolicy KINDERDOB: Community Number: [id number] Hospital [id number] Repository Date:6909-14-40[address], [place] [address]TB: 01/08/2018 Tertiary NOT GIVENUNK Darion Insurance:SELF PAY [facility] Number: Effective Repository Date:2018-01-08 12/28/2017 SHARIF A Primary BENITA A Sherman [id number] Insurance:MEDICARE KINDERDOB: Community DEBBIE PART A [id number] [place] Number[facility] Repository [address]Mvd: 330 [id number] [phone] (HP) Date:2017-12-28 12/28/2017 Secondary BENITA A Darion Insurance:AARPPolicy KINDERDOB: Community Number: [id number] Hospital [id number] Repository Date:4688-61-53DN [address], [place] [address]VR: 12/28/2017 Tertiary NOT GIVENUNK Sherman Insurance:SELF PAY [facility] Number: Effective Repository Date:2017-12-28 08/04/2017 Sharif A Primary BENITA A Darion [id number] Insurance:MEDICARE KINDERDOB: Community Debbie PART A [facility] [id number] Number: Repository [id number]: 330 [id number] [phone] (HP) Date:2017-07-09 08/04/2017 Secondary BENITA A Darion Insurance:AARPPolicy KINDERDOB: Community Number: [id number] Hospital [id number] Repository Date:0525-56-96IY [address]EL, [place] [address]KY: 08/04/2017 Tertiary NOT GIVENLD [place] Insurance:SELF PAY [facility] Number: Effective Repository Date:2017-07-09
== END ==
PROVIDERS: Family Provider Family Medicine; PCP Family Medicine; Visit Provider Family Medicine
DX: E55.9 Vitamin D deficiency, unspecified (principal)
CPT/HCPCS: 36415; 82306

== ENCOUNTER → 2018-06-15 11:12 | Outpatient (CLI) | payer MEDICARE, OTHER, SELFPAY ==
--- NOTE | 2018-06-15 11:19 | BD_ITS ---
STUDY: DUAL ENERGY X-RAY ABSORPTIOMETRY / DXA REASON FOR EXAM: Female, 78 years old. The patient is postmenopausal. Loss of height. TECHNIQUE: Bone Mineral Density (BMD) measurements of lumbar spine and bilateral hips were obtained. COMPARISON: Comparison is made with prior study dated July 28, 2005. FINDINGS: Lumbar Spine (L1-L4): g/cm2 (1.167) / T-score (0.0) / Z-score (1.8) Findings are suggestive of normal bone density with a low fracture risk. Left Femur Total: g/cm2 (0.845) / T-score (-1.3) / Z-score (0.6) Left Femoral Neck: g/cm2 (0.759) / T-score (-2.0) / Z-score (0.0) Right Femur Total: g/cm2 (0.874) / T-score (-1.1) / Z-score (0.8) Right Femoral Neck: g/cm2 (0.803) / T-score (-1.7) / Z-score (0.4) The T-Scores on the most recent prior examination were: Lumbar Spine (L1-L4): There has been no change of bone density since the previous examination. Left Femur Total: which represents a worsening of 11.6%. BD/Dexa Bone Density Study IMPRESSION: The patient is considered osteopenic as outlined below according to World Wally Organization (WHO) criteria with a moderate fracture risk. There has been worsening of bone density since the previous examination. Reference Information: The T-score is the number of standard deviations above or below the standard which is normal for young adults at their peak bone mineral density. The World Health Organization (WHO) interprets the T-scores as follows: Above -1 Normal bone density Between -1 and -2.5 Osteopenia Equal to / or below -2.5 Osteoporosis As a practical clinical guideline, osteopenia may be graded as follows: Mild -1 through -1.5 Moderate -1.6 through -2.0 Severe -2.1 through -2.4 The Z-score is the number of standard deviations above or below age-matched controls. A Z-score of less than -1.5 would be considered abnormal. References: 1. NIH Osteoporosis and Related Bone Diseases http://www.osteo.org 2. International Society for Clinical Densitometry http://www.iscd.org 3. National Osteoporosis Foundation http://www.nof.org Electronically Signed: Clovis Dick MD at 14:53 EST , Service support ,
== END ==
PROVIDERS: Family Provider Family Medicine; PCP Family Medicine; Referring Provider Family Medicine; Visit Provider Family Medicine
DX: M85.80 Other specified disorders of bone density and structure, unspecified site (principal); Z78.0 Asymptomatic menopausal state
CPT/HCPCS: 77080

== ENCOUNTER → 2018-08-01 | Outpatient (CLI) | payer MEDICARE, OTHER, SELFPAY ==
--- NOTE | 2018-08-01 12:52 | CDU_ITS ---
Reason For Study: Carotid stenosis Rt. Velocities/BP Lt. Velocities/BP Prox CCA 73.4/18.6 cm/sec. Prox CCA 108.6/25.2 cm/sec. Mid CCA 72.1/21.3 cm/sec. Mid CCA 93.0/27.8 cm/sec. Dist CCA 82.6/21.3 cm/sec. Dist CCA 77.3/21.2 cm/sec. Prox ICA 55.2/17.3 cm/sec. Prox ICA 102.3/27.4 cm/sec. Mid ICA 103.4/36.9 cm/sec. Mid ICA 90.2/25.4 cm/sec. Dist ICA 120.4/38.2 cm/sec. Dist ICA 65.6/14.8 cm/sec. Rt. ICA/CCA = 1.7. Lt. ICA/CCA = 1.1. Prox ECA 121.7/18.6 cm/sec. Prox ECA 137.5/18.8 cm/sec. Rt. Vert. 47.3/16.0 cm/sec. Lt. Vert. 59.3/17.6 cm/sec. Right Extracranial There is intimal thickening but no significant atherosclerotic plaque noted in the right common carotid artery. There is heterogeneous, irregular atherosclerotic plaque noted in the right internal carotid artery. There is no significant atherosclerotic plaque noted in the right external carotid artery. Antegrade flow is noted in the right vertebral artery. Left Extracranial There is intimal thickening but no significant atherosclerotic plaque noted in the left common carotid artery. There is homogeneous, smooth atherosclerotic plaque noted in the left internal carotid artery. The left internal carotid artery is very tortuous. There is homogeneous, smooth atherosclerotic plaque noted in the left external carotid artery. Antegrade flow is noted in the left vertebral artery. Procedure Carotid Duplex 29121. Exam performed in department. Interpretation Summary Mild (<50%) stenosis right extracranial internal carotid. Mild (<50%) stenosis left extracranial internal carotid. Flow within the vertebral arteries is antegrade bilaterally. Ordering Physician: Chris Mora Referring Physician: Chris Mora Performed By: Roma Crespo RVT
== END | disposition home or self-care (01) ==
LOC: CVS 12:49
PROVIDERS: Family Provider Family Medicine; PCP Family Medicine; Referring Provider Family Medicine; Visit Provider Family Medicine
DX: I65.23 Occlusion and stenosis of bilateral carotid arteries (principal)
CPT/HCPCS: 93880

== ENCOUNTER → 2019-01-16 10:32 | Outpatient (CLI) | payer MEDICARE, OTHER, SELFPAY ==
[2019-01-16 12:27] LABS: Absolute Lymphocyte Count 2.04 X10^3/uL (0.83-4.51); Absolute Neutrophil Count 3.1 X10^3/uL (2.0-7.7); Basophil# 0.04 X10^3/uL; Basophil% 0.6 % (0-1); Eosinophil# 0.25 X10^3/uL; Hematocrit 46.3 % (37-47); Hemoglobin 14.4 g/dL (12.0-15.0); Lymphocyte # 2.04 X10^3/ul (4.0); Lymphocyte % 32.9 % (19-41); Mean Corp Hgb Conc 31.1 g/dL (32-36); Mean Corpuscular Hgb 28.6 pg (27.0-32.0); Mean Platelet Vol. 10.6 fl (6.2-12.0); Monocyte# 0.74 X10^3/uL; Monocyte% 11.9 % (0-10); NRBC Flagged by Analyzer 0 % (0-5); Neutrophil # 3.11 X10^3/uL (2.7-7.7); Neutrophil % 50.3 % (47-70); Platelet Count 220 K/mm3 (150-450); RBC Distribution Width CV 14.9 % (11.6-14.6); Red Blood Count 5.03 M/mm3 (4.2-5.4); White Blood Count 6.2 K/mm3 (4.4-11.0)
[2019-01-16 12:35] LABS: Vitamin D,25 Hydroxy 38.5 ng/mL (29.95-100.01)
[2019-01-16 12:45] LABS: Anion Gap 3 (5-15); BUN 18 mg/dL (7-18); BUN/Creat Ratio 20.5 RATIO (10-20); Calcium,Total 9.1 mg/dL (8.5-10.1); Chloride 106 mmol/L (98-107); Cholesterol 153 mg/dL (200); Creatinine, Serum 0.88 mg/dL (0.55-1.02); EST Glomerular Filtration Rate 66 mL/min (>60); Est Glom Filt Rate - Afr Amer 80 mL/min (>60); Glucose 83 mg/dL (74-106); High Density Lipoprotein 66 mg/dL; Potassium 4.3 mmol/L (3.5-5.1); Sodium Level 139 mmol/L (136-145); Thyroid Stim Hormone (TSH) 0.22 uIU/mL (0.358-3.74); Triglycerides 102 mg/dL; Very Low Density Lipoprotein 20 mg/dL (5-40)
== END ==
PROVIDERS: Family Provider Family Medicine; PCP Family Medicine; Visit Provider Family Medicine
DX: M85.80 Other specified disorders of bone density and structure, unspecified site (principal); E78.00 Pure hypercholesterolemia, unspecified; E03.9 Hypothyroidism, unspecified; E55.9 Vitamin D deficiency, unspecified; I10 Essential (primary) hypertension
CPT/HCPCS: 36415; 80048; 80061; 82306; 84443; 85025

== ENCOUNTER → 2019-01-25 15:12 | Outpatient (CLI) | payer MEDICARE, OTHER, SELFPAY ==
--- NOTE | 2019-01-25 15:15 | BI_ITS ---
MAMMOGRAPHY - BILATERAL SCREENING REASON FOR EXAM: Female, 78 years old. Routine annual screening examination. PERTINENT HISTORY: Non-contributory. Chronic inversion of the left nipple. TECHNIQUE: Digital bilateral breast mary (3D mammographic acquisition) in the CC and MLO projections. 2-D mediolateral oblique (MLO) and craniocaudad (CC) views of both breasts were obtained. CAD: Full Field Digital Mammography with Computer Added Detection was performed. COMPARISON: Comparison is made with prior examination dated August 04, 2017 and July 22, 2016. FINDINGS: Breast Composition: The breasts are heterogeneously dense, which may obscure small masses. There are no dominant masses or suspicious calcifications. Stable scattered bilateral calcifications. No focal cluster is seen. No other significant abnormalities are identified. There has been no significant change since the prior study. BI/SCREEN MAMM (CAD) W/MARY BILAT IMPRESSION: Stable bilateral screening mammogram. Yearly follow-up mammogram recommended. (A) ASSESSMENT CATEGORY: BIRADS Category 2: Benign. A letter regarding these results will be sent to the patient by the facility within 30 days. Approximately 10% of breast cancers are not detected by mammography. A normal mammogram should not delay biopsy of a clinically suspicious abnormality. [id number] Electronically Signed: Clovis Dick, at 8:52 EDT , Service support ,
== END ==
PROVIDERS: Family Provider Family Medicine; PCP Family Medicine; Referring Provider Family Medicine; Visit Provider Family Medicine
DX: Z12.31 Encounter for screening mammogram for malignant neoplasm of breast (principal)
CPT/HCPCS: 77063; 77067

== ENCOUNTER → 2019-08-21 11:15 | Outpatient (CLI) | payer MEDICARE, OTHER, SELFPAY ==
[2019-08-21 12:42] LABS: Thyroid Stim Hormone (TSH) 0.26 uIU/mL (0.358-3.74)
== END ==
PROVIDERS: PCP Family Medicine; Referring Provider Family Medicine; Visit Provider Family Medicine
DX: E03.9 Hypothyroidism, unspecified (principal)
CPT/HCPCS: 36415; 84443

== ENCOUNTER → 2019-10-26 12:45 | Outpatient (CLI) | payer MEDICARE, OTHER, SELFPAY ==
--- NOTE | 2019-10-26 12:50 | RAD_ITS ---
STUDY: X-RAY - RIGHT KNEE REASON FOR EXAM: Female, 79 years old. right knee pain for several months, mainly when walking long distances or going up stairs TECHNIQUE: 3 view(s) of the knee. COMPARISON: None. FINDINGS: Normal visualized distal femur. Normal visualized proximal tibia and fibula. Normal proximal tibiofibular articulation. There is no demonstrated fracture. Mild degenerative squaring of the medial compartment. Normal lateral femorotibial compartment. Minimal degenerative changes of the patellofemoral compartment. The soft tissue structures are unremarkable. RAD/Knee 3 Views IMPRESSION: Normally located knee without fracture, osteolytic or blastic bone lesion. Mild degenerative changes of the medial compartment and minimal degenerative changes of the patellofemoral compartment. Electronically Signed: Cheryl Arellano MD at 19:42 EDT , Service support ,
== END ==
PROVIDERS: PCP Family Medicine; Referring Provider Family Medicine; Visit Provider Family Medicine
DX: M25.561 Pain in right knee (principal)
CPT/HCPCS: 73562

== ENCOUNTER → 2019-11-22 11:58 | Outpatient (CLI) | payer MEDICARE, OTHER, SELFPAY ==
[2019-11-22 15:46] LABS: Thyroid Stim Hormone (TSH) 0.54 uIU/mL (0.358-3.74)
== END ==
PROVIDERS: PCP Family Medicine; Referring Provider Family Medicine; Visit Provider Family Medicine
DX: E03.9 Hypothyroidism, unspecified (principal)
CPT/HCPCS: 36415; 84443

== ENCOUNTER → 2020-02-12 10:08 | Outpatient (CLI) | payer MEDICARE, OTHER, SELFPAY ==
[2020-02-12 12:51] LABS: Anion Gap 5 (5-15); BUN 22 mg/dL (7-18); BUN/Creat Ratio 29.7 RATIO (10-20); Chloride 104 mmol/L (98-107); Cholesterol 163 mg/dL (200); Creatinine, Serum 0.74 mg/dL (0.55-1.02); EST Glomerular Filtration Rate 80 mL/min (>60); Est Glom Filt Rate - Afr Amer 97 mL/min (>60); Glucose 82 mg/dL (74-106); High Density Lipoprotein 68 mg/dL; Potassium 3.9 mmol/L (3.5-5.1); Sodium Level 139 mmol/L (136-145); Triglycerides 79 mg/dL; Very Low Density Lipoprotein 16 mg/dL (5-40)
== END ==
PROVIDERS: PCP Family Medicine; Visit Provider Family Medicine
DX: I10 Essential (primary) hypertension (principal); E78.00 Pure hypercholesterolemia, unspecified
CPT/HCPCS: 36415; 80048; 80061

== ENCOUNTER → 2020-04-30 11:40 | Outpatient (CLI) | payer MEDICARE, OTHER, SELFPAY | PROVIDERS: PCP Family Medicine; Referring Provider Family Medicine; Visit Provider Nurse Practitioner Family | DX: Z20.822 Contact with and (suspected) exposure to COVID-19 (principal) | CPT/HCPCS: 87635; U0005; U0003 ==

== ENCOUNTER → 2020-08-19 09:48 | Outpatient (CLI) | payer MEDICARE, OTHER, SELFPAY ==
[2020-08-19 12:55] LABS: AST(SGOT) 19 U/L (15-37); Alanine Aminotransfer ALT/SGPT 28 U/L (13-56); Albumin, Serum 3.6 g/dL (3.2-5.0); Alkaline Phosphatase 101 U/L (45-117); Anion Gap 6 (5-15); BUN 20 mg/dL (7-18); BUN/Creat Ratio 23.6 RATIO (10-20); Calcium,Total 9.3 mg/dL (8.5-10.1); Chloride 104 mmol/L (98-107); Cholesterol 166 mg/dL (200); Creatinine, Serum 0.85 mg/dL (0.55-1.02); EST Glomerular Filtration Rate 69 mL/min (>60); Est Glom Filt Rate - Afr Amer 83 mL/min (>60); Globulin 3.6 g/dL (2.2-4.2); Glucose 83 mg/dL (74-106); High Density Lipoprotein 73 mg/dL; Potassium 4.1 mmol/L (3.5-5.1); Protein, Total 7.2 g/dL (6.4-8.2); Sodium Level 139 mmol/L (136-145); Thyroid Stim Hormone (TSH) 1.89 uIU/mL (0.358-3.74); Triglycerides 93 mg/dL; Very Low Density Lipoprotein 19 mg/dL (5-40)
== END ==
PROVIDERS: PCP Family Medicine; Visit Provider Family Medicine
DX: I10 Essential (primary) hypertension (principal); E03.9 Hypothyroidism, unspecified
CPT/HCPCS: 36415; 80053; 80061; 84443

== ENCOUNTER → 2020-10-17 14:23 | Outpatient (CLI) | payer MEDICARE, OTHER, SELFPAY ==
[2020-10-17 18:01] LABS: Absolute Lymphocyte Count 1.15 X10^3/uL (0.83-4.51); Absolute Neutrophil Count 3.6 X10^3/uL (2.0-7.7); Basophil# 0.04 X10^3/uL; Basophil% 0.7 % (0-1); Eosinophil# 0.18 X10^3/uL; Eosinophils% 3.1 % (0-5); Hematocrit 44.4 % (37-47); Hemoglobin 13.9 g/dL (12.0-15.0); Lymphocyte # 1.15 X10^3/ul (0.83-4.51); Mean Corp Hgb Conc 31.3 g/dL (32-36); Mean Corpuscular Hgb 28.8 pg (27.0-32.0); Mean Corpuscular Volume 91.9 fL (81-99); Mean Platelet Vol. 11.1 fl (6.2-12.0); Monocyte# 0.71 X10^3/uL; Monocyte% 12.4 % (0-10); NRBC Flagged by Analyzer 0 % (0-5); Neutrophil # 3.64 X10^3/uL (2.7-7.7); Neutrophil % 63.5 % (47-70); Platelet Count 202 K/mm3 (150-450); RBC Distribution Width CV 14.7 % (11.6-14.6); RBC Distribution Width SD 49.9 fl (35.1-43.9); Red Blood Count 4.83 M/mm3 (4.2-5.4); White Blood Count 5.7 K/mm3 (4.4-11.0)
[2020-10-17 18:08] LABS: ALB/GLOB Ratio 1.1 RATIO (0.9-2.4); AST(SGOT) 26 U/L (15-37); Alanine Aminotransfer ALT/SGPT 31 U/L (13-56); Albumin, Serum 3.8 g/dL (3.2-5.0); Alkaline Phosphatase 110 U/L (45-117); Anion Gap 5 (5-15); BUN 22 mg/dL (7-18); Calcium,Total 9.3 mg/dL (8.5-10.1); Chloride 103 mmol/L (98-107); Creatinine, Serum 0.71 mg/dL (0.55-1.02); EST Glomerular Filtration Rate 84 mL/min (>60); Est Glom Filt Rate - Afr Amer 102 mL/min (>60); Globulin 3.5 g/dL (2.2-4.2); Glucose 72 mg/dL (74-106); Potassium 4.1 mmol/L (3.5-5.1); Protein, Total 7.3 g/dL (6.4-8.2); Sodium Level 138 mmol/L (136-145)
[2020-10-17 18:38] LABS: Carbamazepine (Tegretol) 4.4 ug/mL (4.0-12.0)
== END ==
PROVIDERS: PCP Family Medicine; Referring Provider Family Medicine; Visit Provider Family Medicine
DX: G50.0 Trigeminal neuralgia (principal)
CPT/HCPCS: 36415; 80053; 80156; 85025

== ENCOUNTER → 2021-01-02 09:20 | Outpatient (CLI) | payer MEDICARE, OTHER, SELFPAY ==
[2021-01-02 12:01] LABS: Hematocrit 44.8 % (37-47); Hemoglobin 14.3 g/dL (12.0-15.0); Mean Corp Hgb Conc 31.9 g/dL (32-36); Mean Corpuscular Hgb 30.1 pg (27.0-32.0); Mean Corpuscular Volume 94.3 fL (81-99); Mean Platelet Vol. 10.1 fl (6.2-12.0); Platelet Count 202 K/mm3 (150-450); RBC Distribution Width CV 14.5 % (11.6-14.6); Red Blood Count 4.75 M/mm3 (4.2-5.4); White Blood Count 4.9 K/mm3 (4.4-11.0)
[2021-01-02 12:15] LABS: AST(SGOT) 21 U/L (15-37); Alanine Aminotransfer ALT/SGPT 31 U/L (13-56); Albumin, Serum 3.5 g/dL (3.2-5.0); Alkaline Phosphatase 110 U/L (45-117); Anion Gap 3 (5-15); BUN 20 mg/dL (7-18); BUN/Creat Ratio 28.4 RATIO (10-20); Calcium,Total 9.1 mg/dL (8.5-10.1); Chloride 104 mmol/L (98-107); EST Glomerular Filtration Rate 85 mL/min (>60); Est Glom Filt Rate - Afr Amer 103 mL/min (>60); Globulin 3.5 g/dL (2.2-4.2); Glucose 84 mg/dL (74-106); Potassium 4.6 mmol/L (3.5-5.1); Sodium Level 138 mmol/L (136-145)
[2021-01-02 12:17] LABS: Carbamazepine (Tegretol) 5.9 ug/mL (4.0-12.0)
== END ==
PROVIDERS: PCP Family Medicine; Referring Provider Psychiatry & Neurology Neurology; Visit Provider Psychiatry & Neurology Neurology
DX: G50.0 Trigeminal neuralgia (principal)
CPT/HCPCS: 36415; 80053; 80156; 85027

== ENCOUNTER → 2021-01-03 10:56 | Outpatient (CLI) | payer MEDICARE, OTHER, SELFPAY ==
--- NOTE | 2021-01-03 10:59 | MRI_ITS ---
STUDY: MRA OF THE HEAD WITHOUT CONTRAST REASON FOR EXAM: Female, 80 years old. Trigeminal neuralgia RIGHT TECHNIQUE: 3-D jiuv-hc-ziuzev (TOF) imaging was performed with MIPs. The study was performed unenhanced. COMPARISON: None. FINDINGS: Normal bilateral petrous carotid arteries. Normal right cavernous carotid artery with a normal supraclinoid bifurcation. Normal left cavernous carotid artery with a normal supraclinoid bifurcation. Normal right A1 segments of the anterior cerebral artery. Normal left A1 segments of the anterior cerebral artery. Normal intact anterior communicating artery (ACOM). Normal bilateral A2 segments of the anterior cerebral arteries. Normal right M1 and M2 segments of the middle cerebral arteries, with a normal M1 bifurcation. Normal left M1 and M2 segments of the middle cerebral arteries, with a normal M1 bifurcation. Normal right posterior communicating artery (PCOM). Normal left posterior communicating artery (PCOM). Normal bilateral vertebral arteries. Normal basilar artery with a normal basilar bifurcation. The visualized bilateral superior cerebellar (SCA) arteries are normal. Normal bilateral P1, P2 and visualized P3 segments of the posterior cerebral arteries. There is no demonstrated aneurysm of the [place]. There is no major vessel occlusion or hemodynamically significant stenosis. There is no demonstrated abnormality of the visualized brain. MRI/MRA Head ONLY without Contrast IMPRESSION: Normal MRA of the head Electronically Signed: Sharif Allen MD at 13:28 EDT Tel , Service support ,
--- NOTE | 2021-01-03 10:59 | MRI_ITS ---
STUDY: MRI BRAIN WITH AND WITHOUT CONTRAST (ATTENTION INTERNAL AUDITORY CANALS - I.A.C.''s) REASON FOR EXAM: Female, 80 years old. Trigeminal neuralgia RIGHT TECHNIQUE: Standardized multiplanar fat and water weighted pulse sequences were obtained. IV 15ml Dotarem was administered for the contrast portion of the examination. COMPARISON: None. FINDINGS: Normal bilateral temporal bones. Normal bilateral internal auditory canals. There is no demonstrated intracanalicular or cisternal vestibular schwannoma (acoustic neuroma). There is no enhancement of the bilateral VIIth or VIIIth cranial nerves. Normal bilateral cochlea, vestibules and semicircular canals. There is moderate cerebral atrophy with widening of the extra-axial spaces and ventricular dilatation. Normal white matter tracts of the supratentorial brain. There is no evidence for recent intracranial ischemia or other cause of cytotoxic edema on diffusion weighted imaging (DWI). Normal bilateral basal ganglia. Normal thalami. Normal flow voids within the major intracranial circulation suggesting patency by spin echo criteria. Normal venous enhancement. There is no enhancing intra-axial or extra-axial abnormality. There is no extra-axial fluid accumulation. Normal sella turcica, pituitary gland, infundibular stalk, optic chiasm and hypothalamus. Normal tectal plate and pineal gland. Normal midbrain, keith and medulla. Normal cerebellum. Normal basal cisterns. No demonstrated orbital abnormality, within the constraints of a routine brain study. Normal visualized paranasal sinuses. Normal calvarium and skull base. Normal visualized soft tissue structures. Normal visualized upper cervical spine. MRI/Brain W/WO Contrast IMPRESSION: Involutional changes of the brain, as described above. Electronically Signed: Sharif Allen MD at 13:27 EDT Tel , Service support ,
== END ==
PROVIDERS: PCP Family Medicine; Referring Provider Psychiatry & Neurology Neurology; Visit Provider Psychiatry & Neurology Neurology
DX: G50.0 Trigeminal neuralgia (principal)
CPT/HCPCS: 70544; 70553; A9575

== ENCOUNTER 2021-04-28 11:41 | Outpatient (CLI) | payer MEDICARE, OTHER, SELFPAY ==
--- NOTE | 2021-04-28 11:46 | BI_ITS ---
MAMMOGRAPHY - BILATERAL SCREENING REASON FOR EXAM: Female, 80 years old. Routine annual screening examination. PERTINENT HISTORY: Non-contributory. Chronic inversion of the left TECHNIQUE: Digital bilateral breast mary (3D mammographic acquisition) in the CC and MLO projections. 2-D mediolateral oblique (MLO) and craniocaudad (CC) views of both breasts were obtained. CAD: Full Field Digital Mammography with Computer Added Detection was performed. COMPARISON: Comparison is made with prior study dated 01/25/2019 and 08/04/2017. FINDINGS: Breast Composition: The breasts are heterogeneously dense, which may obscure small masses. Since prior examination, there has been a progression of microcalcifications in the central slightly lateral aspect of the right breast. The patient will be recalled for additional magnification spot views of this region. No other significant abnormalities are identified. BI/SCRN MAMM (CAD)W/MARY BILAT IMPRESSION: Interval increase in the number of microcalcifications in the central slightly lateral aspect of the right breast as described. The patient will be recalled for additional views including magnification spot views. Recall Side: Right Breast ASSESSMENT CATEGORY: BIRADS Category 0: Incomplete. Need additional imaging evaluation. A letter regarding these results will be sent to the patient by the facility within 30 days. Approximately 10% of breast cancers are not detected by mammography. A normal mammogram should not delay biopsy of a clinically suspicious abnormality. [id number] Electronically Signed: Clovis Dick MD at 13:04 EST , Service support ,
== END 2021-04-28 23:59 | disposition short-term general hospital (02) ==
LOC: OPBI 11:43
PROVIDERS: PCP Family Medicine; Referring Provider Nurse Practitioner Family; Visit Provider Nurse Practitioner Family
DX: Z12.31 Encounter for screening mammogram for malignant neoplasm of breast (principal)
CPT/HCPCS: 77063; 77067

== ENCOUNTER 2021-04-30 09:00 | Outpatient (CLI) | payer MEDICARE, OTHER, SELFPAY ==
--- NOTE | 2021-04-30 09:03 | BI_ITS ---
MAMMOGRAPHY - UNILATERAL DIAGNOSTIC: RIGHT BREAST REASON FOR EXAM: Female, 80 years old. Abnormal screening mammogram. PERTINENT HISTORY: Non-contributory. TECHNIQUE: Compression magnification views of the right breast were obtained. CAD: Full Field Digital Mammography with Computer Added Detection was performed. COMPARISON: Comparison is made with prior study dated 04/28/2021. FINDINGS: Breast Composition: The breasts are heterogeneously dense, which may obscure small masses. The cluster of microcalcifications in the central slightly lateral aspect of the right breast are increased in number and heterogeneity. A biopsy is recommended. No other significant abnormalities are identified. BI/DIAG MAMM W/CAD, UNILAT IMPRESSION: Increased number of calcifications within the cluster as described. Biopsy is recommended. ASSESSMENT CATEGORY: BIRADS Category 4: Suspicious - Biopsy Should Be Considered. A letter regarding these results will be sent to the patient by the facility within 30 days. Approximately 10% of breast cancers are not detected by mammography. A normal mammogram should not delay biopsy of a clinically suspicious abnormality. Electronically Signed: Clovis Dick MD at 9:43 EST , Service support ,
== END 2021-04-30 23:59 | disposition short-term general hospital (02) ==
LOC: OPBI 09:01
PROVIDERS: PCP Family Medicine; Visit Provider Nurse Practitioner Family
DX: R92.8 Other abnormal and inconclusive findings on diagnostic imaging of breast (principal)
CPT/HCPCS: 77065

== ENCOUNTER 2021-05-12 07:32 | Outpatient (CLI) | payer MEDICARE, OTHER, SELFPAY ==
--- NOTE | 2021-05-12 07:50 | PCM.HP.BLA ---
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 Is patient in pain?: No Allergies No Known Allergies Allergy (Verified 05/06/21 08:29) Medications aspirin 81 mg PO DAILY@0800 01/08/18 [History Confirmed 05/06/21] atorvastatin 10 mg PO QHS 01/08/18 [History Confirmed 05/06/21] triamterene-hydrochlorothiazid [Maxzide 37.5 mg-25 mg Tablet] 0.5 tab PO DAILY 01/13/18 [History Confirmed 05/06/21] cholecalciferol (vitamin D3) 50 mcg (2,000 unit) capsule 4,000 unit PO DAILY 12/18/20 [History Confirmed 05/06/21] levothyroxine 88 mcg tablet 88 mcg PO DAILY 12/18/20 [History Confirmed 05/06/21] lisinopril 20 mg tablet 20 mg PO DAILY tab 12/19/20 [History Confirmed 05/06/21] [facility] Medical History (Updated 05/06/21 @ 08:[address] Moses Hillman MD) Arthritis Basal cell carcinoma Hypertension Kidney stones Osteoarthritis Trigeminal neuralgia Surgical History (Updated 05/06/21 @ 08:27 by Ember Wednesday) History of hysterectomy History of knee replacement History of lithotripsy Family History (Updated 05/06/21 @ 08:27 by Ember Wednesday) Father Heart disease Hypertension CVA (cerebral vascular accident) Mother Trigeminal nerve disorder had surgery to correct 50+ years ago Cancer Rectal Social History Smoking Status: Never smoker alcohol intake: current alcohol intake frequency: holidays/special occasions only details: Social substance use type: does not use HPI HPI HPI: BENITA DORADO, is a 80 F who presents to the office today for surgical consultation regarding abnormal breast imaging. The patient is referred by but Dr. Yonathan Benitez intermittent compromise surgical consult recommendations will return to him. On April 28, 2021 the patient had screening mammography performed at the [facility]. There was felt to be progression of microcalcifications in the central slightly lateral right breast. Diagnostic right mammograms were obtained on April 30, 2021. This confirmed the concern and felt that biopsy was indicated BI-RADS Category 4. She has had chronic partial inversion of the left nipple. She has not had any nipple discharge or bleeding from either side. She is not able to detect any masses. G3, . Menarche at age 11 first child born when she was 23. She did breast-feed. No previous breast biopsies. She has a daughter who is a nurse in [place] and may have been diagnosed 15 years ago with LCIS which is still being observed. I am not clear on that history. The patient has been on low-dose aspirin 81 mg daily. This has been at her own discretion. ROS General General: No weight change, appetite, fatigue, colon cancer, breast cancer or weakness HEENT HEENT: No difficulty swallowing, eye injury, eye surgery, swollen glands or hoarseness Endo Endocrine: No thyroid disease, diabetes mellitus, thyroid cancer, Hair loss, heat intolerance or cold intolerance Skin Skin: No rash or changing moles Breast Breast: Yes abnormal mammogram; No left breast lump, right breast lump, nipple discharge, breast pain, abnormal US or breast enlargement Musc Musculoskeletal: Yes arthritis; No back problems, rheumatoid arthritis, gout or joint pain Cardio Cardiovascular: Yes high blood pressure; No murmur, pacemaker, heart disease, atrial fibrillation, heart attack, heart stent, palpitations, shortness of breat with exertion or chest pain Psych Psychiatric: No depression, anxiety or hearing voices Resp Respiratory: No shortness of breath, No sleep apnea, No cough, No COPD, No asthma, No emphysema and No wheezing Gastro Gastrointestinal: No abdominal pain, No nausea or vomiting, No diarrhea, No constipation, No blood in stool, No acid reflux, No hemorrhoids, No ulcers, No gallbladder problem and No black,tarry stools Fadi Hematologic: No blood thinners, No blood disorders, No bleeding, No anemia and No blood clots Additional Details: Baby ASA daily Neuro Neurologic: No system reviewed and no additional complaints, except as documented, No as per HPI, No abnormal gait, No abnormal hearing, No abnormal movements, No abnormal speech, No behavioral changes, No burning sensations, No confusion, No convulsions, No disequilibrium, No dizziness, No localized weakness, No frequent falls, No headache(s), No lack of coordination, No loss of vision, No memory loss, No numbness, No other visual disturbances, No radicular pain, No restless legs, No sensory deficit, No syncope, No tingling, No tremor(s), No weakness and No other Exam Const General: cooperative, healthy appearing, comfortable and no acute distress Nutritional Appearance: overweight Orientation: alert and awake Eyes General: appearance normal, both eyes and all related structures Chest Other: Right breast: Soft supple no focal mass no axillary clavicular adenopathy Left breast slight retraction of the left nipple. Slight thickening of the retroareolar tissue on the left. No nipple discharge no axillary clavicular adenopathy Resp Effort & Inspection: normal respiratory effort Auscultation: clear to auscultation bilaterally Cardio Rate: regular rate Rhythm: regular rhythm GI Palpation: soft and no hepatosplenomegaly Neuro General: patient alert and patient awake Extrem General: no calf tenderness Assessment and Plan Assessment and Plan (1) Abnormal mammogram of right breast: Status: Acute Plan - Dr. Moses Hillman MD: Abnormal mammogram right breast. I recommend stereotactic core biopsy mid to mid outer right breast. I described technique, benefit, risk, alternatives. She will hold her aspirin therapy. She has had an opportunity to ask and have questions answered. I appreciate the opportunity of assisting with her surgical care. Copy: Dr. Yonathan Hillman M.D., F.A.C.S. I have re-examined the patient. There are no clinical changes since date of exam.
--- NOTE | 2021-05-12 08:00 | BRBX_PTH ---
PATIENT: BENITA DORADO LOC: [facility] U#:[id number] AGE/SX: 80/F ROOM: RE05/12/[address]: Dr. Moses Hillman MD : 1940 BED: DIS: 05/12/2021 SPEC #: [id number] RECD: 05/12/21 08:44 STATUS: SEGUN RUGGIEROChris #: [id number] CINDY: 05/12/21 08:[address]: Moses Hillman DEPT: SURGICAL PATHOLOGY RECD BY: Amanda Le ENTERED: 05/12/21 11:10 SP TYPE: BREAST BX OTHR DR: Dr. 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 Moderate intraductal hyperplasia without atypia. Negative for malignancy. See comment. SALINA:babar 05/13/2021 COMMENT Correlation with clinical, radiologic findings and appropriate follow up are necessary. Case has been reviewed in consultation with Dr. Jorge who concurs with the above diagnosis. IDC:AM MICROSCOPIC DESCRIPTION Slides are reviewed. GROSS DESCRIPTION Received in fixative is one container labeled with the patient's name and designated right breast. The specimen consists of multiple elongated fragments of rogers-yellow fibroadipose tissue that in aggregate measure 5 x 3 x 0.3 cm. The entire specimen is submitted in two cassettes. / SALINA:babar 05/12/2021 TC:5 CPT: 24806
--- NOTE | 2021-05-22 06:42 | PCM.OPRPT ---
Problems Associated Problem List Diagnoses (1) Abnormal mammogram of right breast: Report of Operation Date of Procedure: 05/12/21 Pre-Operative Diagnosis: Abnormal right mammogram Post-Operative Diagnosis: Same Surgery/Procedure Performed:: Stereotactic needle core right breast Description of Surgical Findings:: Timeout informed consent was obtained. The patient was taken to the stereotactic unit placed prone the table the right breast was placed in a compression views Steritalc images were obtained digital information taken to single target site breast was prepped with Betadine 1% lidocaine was used as local anesthetic small stab incision was created. 8 gauge resolved needle was advanced to prefire depth. Prefire films were obtained. The item in question was localized. Device was fired multiple cores were obtained marking clip was left in place she was released from the device pressure was held for hemostasis Steri-Strip Telfa OpSite dressing applied the specimen cores were mammogram demonstrated calcifications present they were immediately then placed in formalin for analysis. She tolerated procedure well no apparent blood loss. Moses Hillman M.D., F.A.C.S. Surgeon: Moses Hillman Type of Anesthesia: Local
== END 2021-05-12 23:59 | disposition short-term general hospital (02) ==
LOC: BIRAD 07:33
PROVIDERS: PCP Family Medicine; Visit Provider Surgery
DX: R92.8 Other abnormal and inconclusive findings on diagnostic imaging of breast (principal)
CPT/HCPCS: 19081; 88305; J7050

== ENCOUNTER → 2021-08-22 | Outpatient (CLI) | payer MEDICARE, OTHER, SELFPAY ==
[2021-08-22 12:09] LABS: Hematocrit 44.7 % (37-47); Hemoglobin 14.2 g/dL (12.0-15.0); Mean Corp Hgb Conc 31.8 g/dL (32-36); Mean Corpuscular Hgb 28.8 pg (27.0-32.0); Mean Corpuscular Volume 90.7 fL (81-99); Mean Platelet Vol. 10.9 fl (6.2-12.0); Platelet Count 195 K/mm3 (150-450); RBC Distribution Width CV 14.2 % (11.6-14.6); RBC Distribution Width SD 47.4 fl (35.1-43.9); Red Blood Count 4.93 M/mm3 (4.2-5.4); White Blood Count 5.9 K/mm3 (4.4-11.0)
[2021-08-22 12:26] LABS: Vitamin D,25 Hydroxy 39.8 ng/mL
[2021-08-22 12:40] LABS: ALB/GLOB Ratio 1.1 RATIO (0.9-2.4); AST(SGOT) 22 U/L (15-37); Alanine Aminotransfer ALT/SGPT 23 U/L (13-56); Albumin, Serum 3.7 g/dL (3.2-5.0); Alkaline Phosphatase 101 U/L (45-117); Anion Gap 4 (5-15); BUN 20 mg/dL (7-18); BUN/Creat Ratio 22.8 RATIO (10-20); Calcium,Total 9.1 mg/dL (8.5-10.1); Chloride 105 mmol/L (98-107); Cholesterol 205 mg/dL (200); Creatinine, Serum 0.88 mg/dL (0.55-1.02); EST Glomerular Filtration Rate 66 mL/min (>60); Est Glom Filt Rate - Afr Amer 80 mL/min (>60); Globulin 3.4 g/dL (2.2-4.2); Glucose 86 mg/dL (74-106); High Density Lipoprotein 80 mg/dL; Potassium 4.1 mmol/L (3.5-5.1); Protein, Total 7.1 g/dL (6.4-8.2); Sodium Level 137 mmol/L (136-145); Thyroid Stim Hormone (TSH) 0.56 uIU/mL (0.358-3.74); Triglycerides 88 mg/dL; Very Low Density Lipoprotein 18 mg/dL (5-40)
== END | disposition home or self-care (01) ==
LOC: MFPLAB 09:58
PROVIDERS: PCP Family Medicine; Referring Provider Family Medicine; Visit Provider Family Medicine
DX: G50.0 Trigeminal neuralgia (principal); E78.00 Pure hypercholesterolemia, unspecified; E03.9 Hypothyroidism, unspecified; M85.80 Other specified disorders of bone density and structure, unspecified site
CPT/HCPCS: 36415; 80053; 80061; 82306; 84443; 85027

== ENCOUNTER → 2022-05-12 | Outpatient (CLI) | payer MEDICARE, OTHER, SELFPAY ==
--- NOTE | 2022-05-12 12:00 | BI_ITS ---
MAMMOGRAPHY - BILATERAL SCREENING REASON FOR EXAM: Female, 81 years old. Routine annual screening examination. PERTINENT HISTORY: Non-contributory. Prior right stereotactic breast biopsy. Chronic inversion of the left nipple. TECHNIQUE: Digital bilateral breast mary (3D mammographic acquisition) in the CC and MLO projections. 2-D mediolateral oblique (MLO) and craniocaudad (CC) views of both breasts were obtained. CAD: Full Field Digital Mammography with Computer Added Detection was performed. COMPARISON: Comparison is made with prior study 04/30/2021 and 04/28/2021. FINDINGS: Breast Composition: The breasts are heterogeneously dense, which may obscure small masses. There are no dominant masses or suspicious calcifications. A tissue clip marker is seen in the central portion of the right breast in keeping with prior stereotactic biopsy. The number of the calcifications in the cluster has decreased. Stable scattered bilateral microcalcifications. No other significant abnormalities are identified. BI/SCRN MAMM (CAD)W/MARY BILAT IMPRESSION: Stable bilateral screening mammogram. Yearly follow-up mammogram recommended. (A) ASSESSMENT CATEGORY: BIRADS Category 2: Benign. A letter regarding these results will be sent to the patient by the facility within 30 days. Approximately 10% of breast cancers are not detected by mammography. A normal mammogram should not delay biopsy of a clinically suspicious abnormality. [id number] Electronically Signed: Clovis Dick MD at 12:39 EST ,
== END | disposition home or self-care (01) ==
LOC: OPBI 11:50
PROVIDERS: PCP Family Medicine; Visit Provider Surgery
DX: Z12.31 Encounter for screening mammogram for malignant neoplasm of breast (principal)
CPT/HCPCS: 77063; 77067

== ENCOUNTER → 2022-05-27 | Outpatient (CLI) | payer MEDICARE, OTHER, SELFPAY ==
--- NOTE | 2022-05-27 | IMM_PTH ---
PATIENT: BENITA DORADO LOC: [facility] U#:[id number] AGE/SX: 81/F ROOM: RE05/27/[address]: Dr. Moses Hillman MD : 1940 BED: DIS: 05/27/2022 SPEC #: [id number] RECD: 05/28/22 14:24 STATUS: SEGUN REQ #: [id number] CINDY: 05/27/22 00:[address]: Moses Hillman DEPT: IMMUNOHISTOCHEMISTRY RECD BY: Siria Gomes ENTERED: 05/28/22 14:26 SP TYPE: IMMUNO OTHR DR: Ca Garg DO Tissues: Right breast, NOS Procedures: CALPONIN-1 (add) CK5-6 (add) CK7 (add) KI-67 (add) P53 (add) 34BE12 (add) Pankeratin (initial) P40 (add) PHYSICIAN & INSTITUTION [address] [address] SPECIMEN INFORMATION: Tissue Source: Right breast Clinical Info: Right breast central density Specimen Number: [id number] #2 CPT code: 31840, 11208 x7 METHODOLOGY: Deparaffinized sections of prefer/formalin-fixed tissue or PAP/DQ stained slides are incubated with monoclonal/polyclonal antibodies/oligonucleotide probes. Localization is made via biotin free immunoperoxidase method. Appropriate controls are performed and reacted as expected. Results on target cell population are indicated in the following table: RESULTS: ANTIBODY / CLONE RESULT Block 2 AE1-3 (AE1/AE3/PCK26) positive CK7 (OV-TL12/30) positive 34BE12 (34BE12) positive Calponin-1 (SD825K) positive CK5-6 (D5 & 1684) positive P40 (BC28) positive P53 (DO-7) positive, 2% Ki-67 (30-9) positive These tests were developed and their performance characteristics determined by [facility]. They may not have been cleared or approved by the U.S. Food and Drug Administration. The FDA has determined that such clearance or approval is not necessary. The above immunohistochemical/dualISH markers are ordered and reviewed by the Pathologist. 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 AM:babar 05/29/2022
--- NOTE | 2022-05-27 07:26 | PCM.HP.BLA ---
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 Hand Required: No Is patient in pain?: No Allergies No Known Allergies Allergy (Verified 05/20/22 13:41) Medications aspirin 81 mg tablet,delayed release 81 mg PO DAILY@0800 01/08/18 [History Confirmed 05/20/22] atorvastatin 10 mg tablet 10 mg PO QHS 01/08/18 [History Confirmed 05/20/22] triamterene 37.5 mg-hydrochlorothiazide 25 mg tablet (Maxzide-25mg) 0.5 tab PO DAILY 01/13/18 [History Confirmed 05/20/22] cholecalciferol (vitamin D3) 50 mcg (2,000 unit) capsule (Vitamin D3) 4,000 unit PO DAILY 12/18/20 [History Confirmed 05/20/22] levothyroxine 88 mcg tablet (Synthroid) 88 mcg PO DAILY 12/18/20 [History Confirmed 05/20/22] lisinopril 20 mg tablet 20 mg PO DAILY 12/19/20 [History Confirmed 05/20/22] latanoprost 0.005 % eye drops 1 drp ophthalmic (eye) DAILY 09/30/21 [History Confirmed 05/20/22] carbamazepine 100 mg chewable tablet 50 mg PO BID #90 tabs 03/30/22 [Rx Confirmed 05/20/22] PFSH Medical History?(Updated 03/30/22 @ 18:[address] Sebastian Hayward MD) Arthritis Basal cell carcinoma Hypertension Kidney stones Osteoarthritis Trigeminal neuralgia Surgical History? History of hysterectomy History of knee replacement History of lithotripsy History of right breast biopsy (~04/2021) Family History? Father Heart disease Hypertension CVA (cerebral vascular accident)Mother Trigeminal nerve disorder ?? ? had surgery to correct 50+ years ago Cancer ?? ? Rectal Social History? Smoking Status:? Never smoker second hand exposure:? No alcohol intake:? current alcohol intake frequency: holidays/special occasions only details:? Social substance use type:? does not use frequency:? 3-4 times per week paloma/christianity:? Druze seatbelt use:? always HPI HPI HPI: HPI: BENITA DORADO, is a 81 F who presents to the office today for surgical follow-up status post stereotactic needle core biopsy right breast that was performed May 12, 2021.? This was done for microcalcifications in the right breast, central slightly lateral right breast.? Final pathology shows intraductal papilloma with focal area of intraductal hyperplasia without atypia.? Calcifications seen.? Moderate intraductal hyperplasia without atypia.? No evidence of malignancy She has had updated bilateral screening mammography on May 12, 2022 as noted below.? I have personally reviewed those mammogram images.? In the deep central right breast there are a small number of microcalcifications consistent with the patient's previous stereotactic core biopsy but there is some dense scarring perhaps even slight spiculation which is not commented upon by the radiologist. The patient notes that she has intermittent twinges of discomfort in the right breast more recently.? She herself however is not able to detect any mass Right breast, microcalcifications, stereotactic needle core biopsy: ?Intraductal papilloma with focal area of intraductal hyperplasia without atypia and calcifications. ?Moderate intraductal hyperplasia without atypia. ?Negative for malignancy. May 12, 2022 MAMMOGRAPHY - BILATERAL SCREENING REASON FOR EXAM:? ? Female, 81 years old.? Routine annual screening examination. PERTINENT HISTORY:? Non-contributory.? Prior right stereotactic breast biopsy.? Chronic inversion of the left nipple. TECHNIQUE: ? Digital bilateral breast mary (3D mammographic acquisition) in the CC and MLO projections. 2-D mediolateral oblique (MLO) and craniocaudad (CC) views of both breasts were obtained.? CAD: Full Field Digital Mammography with Computer Added Detection was performed. COMPARISON: ? Comparison is made with prior study 04/30/2021 and 04/28/2021. FINDINGS: Breast Composition:? The breasts are heterogeneously dense, which may obscure small masses. There are no dominant masses or suspicious calcifications.? A tissue clip marker is seen in the central portion of the right breast in keeping with prior stereotactic biopsy.? The number of the calcifications in the cluster has decreased.? Stable scattered bilateral microcalcifications. No other significant abnormalities are identified. BI/SCRN MAMM (CAD)W/MARY BILAT IMPRESSION: Stable bilateral screening mammogram.? Yearly follow-up mammogram recommended. ? (A) ? ? ASSESSMENT CATEGORY: BIRADS Category 2:? Benign.? A letter regarding these results will be sent to the patient by the facility within 30 days. ? Approximately 10% of breast cancers are not detected by mammography.? A normal mammogram should not delay biopsy of a clinically suspicious abnormality. ? [id number] ? Electronically Signed: Clovis Dick MD at 12:39 EST , Exam Chest Other: Right breast: Well-healed incision upper mid right breast.? Diffuse fibrous change of the right breast.? I cannot detect distinct mass.? No tenderness.? No nipple discharge.? No axillary clavicular adenopathy Left breast: Diffuse fibrous change.? No nipple discharge.? No axillary clavicular adenopathy Assessment and Plan Assessment and Plan (1) Intraductal papilloma of right breast: ?Status:?Acute ?Plan: I have explained to the patient I have personally reviewed her right mammograms and there is a density present I am not able to detect whether this represents post needle core biopsy scar tissue or in a different finding.? I do not believe that the films are completely normal.? We discussed breath ultrasound but I do not think that is going to provide a definitive answer.? I discussed repeat stereotactic needle core biopsy of the area.? I also discussed stereotactic wire localization with excision of the area.? She is 81 almost 82 years of age.? She is aware of technique, benefit, risk of alternatives.? She does take aspirin which she will need to hold for a week.? She cannot decide as to how she would like to proceed at the moment.? 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 I have asked her to give us a phone call back in a couple days or so with a determination as to how she would like to proceed.? I am leaning toward recommending a tissue sampling of this area either with a stereotactic biopsy or complete excision of the area with a stereotactic wire local excision pending her determination. I appreciate the ongoing opportunity of assisting with her surgical care Moses Hillman M.D., F.A.C.S. I have examined the patient and the H&P has been reviewed. There are no clinical changes since date of exam. Moses Hillman M.D., F.A.C.S.
--- NOTE | 2022-05-27 08:00 | BRBX_PTH ---
PATIENT: BENITA DORADO LOC: [facility] U#:[id number] AGE/SX: 81/F ROOM: RE05/27/[address]: Dr. Moses Hillman MD : 1940 BED: DIS: 05/27/2022 SPEC #: [id number] RECD: 05/27/22 08:22 STATUS: SEGUN REChris #: [id number] CINDY: 05/27/22 08:[address]: Moses Hillman DEPT: SURGICAL PATHOLOGY RECD BY: John Byers ENTERED: 05/27/22 10:53 SP TYPE: BREAST BX OTHR DR: Ca Garg DO Tissues: Right breast, NOS Procedures: Special Stain Group II Surgery Specimen Level IV Iron Stain (control) HEADER OPERATION: Right stereotactic breast biopsy PRE-OP DIAGNOSIS: Right breast central density TISSUE SUBMITTED: Right breast core tissue ISCHEMIC TIME: 1 minute FIXATION TIME: 11.5 hours MICROSCOPIC DIAGNOSIS Right breast, central density, stereotactic core biopsy: 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 Fibrosis, benign histiocytic proliferation, and hemosiderin laden macrophages consistent with previous biopsy. See comment. AM:babar 05/28/2022 COMMENT Focal intraductal carcinoma with papillary features measuring 2.5 millimeters is identified within an intraductal papilloma that is hyalinized and calcified. No invasive carcinoma is seen. Immunohistochemistry ([id number]) supports the above diagnosis. Iron stain with matched control was used in the evaluation of this case. Reference is made to the patient's previous right breast biopsy from 05/13/2021 ([id number]) in which intraductal papilloma was identified. Case has been reviewed in consultation with Dr. West who concurs with the above diagnosis. IDC:SJ MICROSCOPIC DESCRIPTION Slides are reviewed. GROSS DESCRIPTION Received in fixative is one container labeled with the patient's name and designated right breast. The specimen consists of multiple elongated fragments of rogers-yellow fibroadipose tissue that in aggregate measure 5 x 2 x 0.3 cm. The entire specimen is submitted in two cassettes. / Juan 05/27/2022 TC:? CPT: 11243, 50153
--- NOTE | 2022-05-27 08:22 | OP.PCM_ITS ---
Report of Operation Date of Procedure: 05/27/22 Pre-Operative Diagnosis: Density at previous biopsy site central right breast Post-Operative Diagnosis: Irregular density at previous biopsy site central right breast Surgery/Procedure Performed:: Stereotactic needle core biopsy right breast Description of Surgical Findings:: Timeout informed consent was obtained. 81-year-old female was taken to the stereotactic room. She was placed prone on the table. The right breast was placed in the cc view. The density and previous marking clip were rapidly identified. Stereotactic images were obtained. Digital information was obtained on a single target site. The breast was prepped with Betadine. 1% lidocaine was used as a local anesthetic. Throughout the procedure a total of 10 cc was used. A small stab incision was created. An 8 gauge resolved needle was advanced to prefire depth. Pre and post fire films were obtained demonstrating adequate localization. 10 cores were obtained. Specimen mammograms demonstrated some scattered calcifications. A bowtie marking clip was left in place. She was released from the device pressure was held for hemostasis. The specimens were immediately transferred to formalin. Steri- Strip Telfa OpSite dressing applied. Blood loss was minimal she tolerated procedure well. Moses Hillman M.D., F.A.C.S. Surgeon: Moses Hillman Type of Anesthesia: Local
== END | disposition home or self-care (01) ==
LOC: BIRAD 07:25
PROVIDERS: PCP Family Medicine; Visit Provider Surgery
DX: R92.8 Other abnormal and inconclusive findings on diagnostic imaging of breast (principal)
CPT/HCPCS: 19081; 88305; 88313; 88341; 88342; J7050; A4648

== ENCOUNTER 2022-06-03 11:00 | Day surgery (SDC) | payer MEDICARE, OTHER, SELFPAY ==
[2022-06-03] VITALS (7 sets, daily range): BP systolic 137–157; BP diastolic 53–77; PULSE 67–77; RESP 16–20; TEMP 36.2–36.6; O2SAT 96–100; BMI 29.5
--- NOTE | 2022-06-03 | IMM_PTH ---
PATIENT: BENITA DORADO LOC: [facility] [place][id number] AGE/SX: 81/F ROOM: RE06/03/[address]: Dr. Moses Hillman MD : 1940 BED: DIS: 06/03/2022 SPEC #: [id number] RECD: 06/08/22 13:22 STATUS: SEGUN REChris #: [id number] CINDY: 06/03/22 00:[address]: Moses Hillman DEPT: IMMUNOHISTOCHEMISTRY RECD BY: Siria Gomes ENTERED: 06/08/22 13:23 SP TYPE: IMMUNO OTHR DR: Ca Garg DO Tissues: Right breast, NOS Procedures: Calponin-1(initial) CK8 (add) E-CAD (add) P40 (add) PHYSICIAN & INSTITUTION [place] [address] SPECIMEN INFORMATION: Tissue Source: Right breast mass Clinical Info: Intraductal papilloma of right breast Specimen Number: [id number] #[id number] CPT code: 63705, 12211 x3 METHODOLOGY: Deparaffinized sections of prefer/formalin-fixed tissue or PAP/DQ stained slides are incubated with monoclonal/polyclonal antibodies/oligonucleotide probes. Localization is made via biotin free immunoperoxidase method. Appropriate controls are performed and reacted as expected. Results on target cell population are indicated in the following table: RESULTS: ANTIBODY / CLONE RESULT Block 16 P40 (BC28) positive Calponin-1 (KG963J) positive E-Cad (ECH-6) negative CK8 (26xdmrR10) positive These tests were developed and their performance characteristics determined by [facility]. They may not have been cleared or approved by the U.S. Food and Drug Administration. The FDA has determined that such clearance or approval is not necessary. The above immunohistochemical/dualISH markers are ordered and reviewed by the Pathologist. INTERPRETATION: Right breast mass, wire localization lumpectomy: Atypical lobular hyperplasia. AM:babar 06/09/2022 This case has been reviewed in consultation with Dr. West who concurs with the above diagnosis.
--- NOTE | 2022-06-03 | BRBX_PTH ---
PATIENT: BENITA DORADO [place] [facility] [place][id number] AGE/SX: 81/F ROOM: RE06/03/[address]: Dr. Moses Hillman MD : 1940 BED: DIS: 06/03/2022 SPEC #: [id number] RECD: 06/03/22 13:50 STATUS: SEGUN REChris #: [id number] CINDY: 06/03/22 00:[address]: Moses Hillman DEPT: SURGICAL PATHOLOGY RECD BY: Siria Gomes ENTERED: 06/04/22 07:43 SP TYPE: BREAST BX OTHR DR: Ca Garg DO Tissues: Right breast, NOS Procedures: Surgery Specimen Level IV HEADER OPERATION: Right breast stereotactic wire localization, breast lumpectomy PRE-OP DIAGNOSIS: Intraductal papilloma of right breast TISSUE SUBMITTED: Right breast mass, long suture ? lateral, short suture ? superior, silk stitch ? new inferior margin defect in capsule MICROSCOPIC DIAGNOSIS Right breast mass, wire localization lumpectomy: Intraductal papilloma with focal area of hyalinization and calcification. Extensive intraductal hyperplasia without atypia. Fibrocystic changes and adenosis. Focal atypical lobular hyperplasia. Change consistent with previous biopsy site. Negative for malignancy. New inferior margin: Focal intraductal hyperplasia without atypia. Ductal dilatation. Negative for malignancy. SJ:babar 06/08/2022 COMMENT A. Microcalcifications are also noted in the areas of atypical lobular hyperplasia and intraductal hyperplasia. Intraductal papilloma measures 1.1 cm in greatest dimension. Immunohistochemistry ([id number]) supports the diagnosis of atypical lobular hyperplasia. Please make reference to previous specimens ([id number]) right breast, central density, stereotactic core biopsy with diagnosis of ?intraductal papillary carcinoma in association with hyalinized and calcified intraductal papilloma? and ([id number]) right breast, microcalcifications, stereotactic needle core biopsy with diagnosis of ?intraductal papilloma with focal area of intraductal hyperplasia without atypia and calcifications.? Case has been reviewed in consultation with Dr. Jorge who concurs with the above diagnosis. IDC:AM MICROSCOPIC DESCRIPTION Slides are reviewed. GROSS DESCRIPTION Received in fresh and postfixed in formatlin is one container labeled with the patient's name and designated right breast mass wire localization. The specimen consists of a piece of fibroadipose tissue with needle localization measuring 7 x 6 x 4 cm. The specimen is oriented by sutures as follows: long suture ? lateral, short suture ? superior, wire ? anterior. Also present in the container is a detached piece of tissue oriented as silk stitch orozco the new inferior margin which measures 3 x 2 x 0.6 cm. The larger piece is inked as follows: anterior - yellow, posterior - black, superior - blue, inferior - green, medial - red and lateral - orange. The smaller piece is inked as follows: new margin ? black, old margin ? blue. Also present is a third small piece of detached soft tissue measuring 1.2 x 1 x 0.3 cm. Sectioning of the largest piece reveal a biopsy cavity measuring 2.5 x 1.5 x 1 cm. The biopsy cavity is 0.5 cm from the closest medial margin. No obvious mass is identified. This information is conveyed to the surgeon intraoperatively. Sectioning of the rest of the specimen reveal rogers-yellow adipose cut surfaces with focal fibrous area. Sectioning of the new margin do not reveal any obvious mass lesion. Heater [employer]ic sections are submitted in 16 cassettes as follows: 1 & 2 - separate piece, new inferior margin, entirely submitted, 3 - perpendicular anterior, posterior and lateral margins, 4 - perpendicular superior, inferior and medial margins, 5-12 - entire biopsy cavity with surrounding tissue, 13-16 - Heater Mechanic sections of the other areas. Sections are submitted after additional fixation. / SALINA:babar 06/04/2022 TC:5 CPT:95335, 92098, 15079
[2022-06-03] MEDS: Lactated Ringers 1,000 ML 15 ML IV ×2 (11:10→14:52)
--- NOTE | 2022-06-03 11:13 | EKG12_ITS ---
Test Reason : Blood Pressure : / mmHG Vent. Rate : 068 BPM Atrial Rate : 068 BPM P-R Int : 172 ms QRS Dur : 070 ms QT Int : 384 ms P-R-T Axes : 050 034 041 degrees QTc Int : 408 ms Normal sinus rhythm Low voltage QRS Borderline ECG No previous ECGs available Confirmed by DARIO RANDALL, FLORENTIN ([id number]), metropolitan editor DAPHNE EDWARDS ([id number]) on 06/08/2022 12:48:37 PM Referred By: NADER Confirmed By:FLORENTIN BISHOP MD
--- NOTE | 2022-06-03 11:30 | BI_ITS ---
SURGICAL BREAST SPECIMEN RADIOGRAPH CLINICAL: Document presence of tissue clip marker in biopsy specimen. FINDINGS: Specimen shows presence of tissue clip marker. Electronically Signed: Clovis Dick MD at 14:05 EST , BI/Breast Biopsy Specimen IMPRESSION: undefined
[2022-06-03 11:39] LABS: Hematocrit 45.5 % (37-47); Hemoglobin 14.5 g/dL (12.0-15.0); Mean Corp Hgb Conc 31.9 g/dL (32-36); Mean Corpuscular Hgb 29.7 pg (27.0-32.0); Platelet Count 202 K/mm3 (150-450); RBC Distribution Width CV 13.9 % (11.6-14.6); RBC Distribution Width SD 48.2 fl (35.1-43.9); Red Blood Count 4.89 M/mm3 (4.2-5.4); White Blood Count 6.4 K/mm3 (4.4-11.0)
[2022-06-03 11:55] LABS: Anion Gap 7 (5-15); BUN 21 mg/dL (7-18); BUN/Creat Ratio 23.7 RATIO (10-20); Calcium,Total 9.8 mg/dL (8.5-10.1); Chloride 105 mmol/L (98-107); Creatinine, Serum 0.88 mg/dL (0.55-1.02); EST Glomerular Filtration Rate 65 mL/min (>60); Est Glom Filt Rate - Afr Amer 79 mL/min (>60); Glucose 89 mg/dL (74-106); Potassium 3.9 mmol/L (3.5-5.1); Sodium Level 142 mmol/L (136-145)
--- NOTE | 2022-06-03 11:59 | HP.PCM_ITS ---
History and Physical Date of Admission: 06/03/22 Visit Reasons:?F/U stereo, discuss excision Chief Complaint: F/U stereo, discuss excision Rigger Up Required: No Is patient in pain?: No Allergies No Known Allergies Allergy (Verified 06/01/22 15:14) Medications aspirin 81 mg tablet,delayed release 81 mg PO DAILY@0800 01/08/18 [History Confirmed 06/01/22] atorvastatin 10 mg tablet 10 mg PO QHS 01/08/18 [History Confirmed 06/01/22] triamterene 37.5 mg-hydrochlorothiazide 25 mg tablet (Maxzide-25mg) 0.5 tab PO DAILY 01/13/18 [History Confirmed 06/01/22] cholecalciferol (vitamin D3) 50 mcg (2,000 unit) capsule (Vitamin D3) 4,000 unit PO DAILY 12/18/20 [History Confirmed 06/01/22] levothyroxine 88 mcg tablet (Synthroid) 88 mcg PO DAILY 12/18/20 [History Confirmed 06/01/22] lisinopril 20 mg tablet 20 mg PO DAILY 12/19/20 [History Confirmed 06/01/22] latanoprost 0.005 % eye drops 1 drp ophthalmic (eye) DAILY 09/30/21 [History Confirmed 06/01/22] carbamazepine 100 mg chewable tablet 50 mg PO BID #90 tabs 03/30/22 [Rx Confirmed 06/01/22] PFSH Medical History? Arthritis Basal cell carcinoma Hypertension Kidney stones Osteoarthritis Trigeminal neuralgia Surgical History? History of hysterectomy History of knee replacement History of lithotripsy History of right breast biopsy (~04/2021) Family History? Father Heart disease Hypertension CVA (cerebral vascular accident)Mother Trigeminal nerve disorder ?? ? had surgery to correct 50+ years ago Cancer ?? ? Rectal Social History? Smoking Status:? Never smoker second hand exposure:? No alcohol intake:? current alcohol intake frequency: holidays/special occasions only details:? Social substance use type:? does not use frequency:? 3-4 times per week paloma/buddhist:? Ep[employer]opalian seatbelt use:? always HPI HPI HPI: 81-year-old female returns to discuss stereotactic needle core biopsy results of May 27, 2022.? As noted below her pathology suggest focal intraductal papillary carcinoma 2.5 mm identified within an intraductal papilloma with no invasive carcinoma identified.? This was based upon mammographic imaging that had been obtained on May 12, 2022 which on my personal review I felt was not a BI-RADS Category 2 as suggested per radiology and therefore I proceeded with a stereotactic biopsy. MICROSCOPIC DIAGNOSIS Right breast, central density, stereotactic core biopsy:? 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 intraductal papilloma? ?Minimal fibrocystic change. Fibrosis, benign histiocytic proliferation, and hemosiderin laden macrophages consistent with previous biopsy. ?See comment. ? AM:rg? 05/28/2022 ? COMMENT Focal intraductal carcinoma with papillary features measuring 2.5 millimeters is identified within an intraductal papilloma that is hyalinized and calcified.? No invasive carcinoma is seen Previous notes reflect the following PI: BENITA DORADO, is a 81 F who presents to the office today for surgical follow-up status post stereotactic needle core biopsy right breast that was performed May 12, 2021.? This was done for microcalcifications in the right breast, central slightly lateral right breast.? Final pathology shows intraductal papilloma with focal area of intraductal hyperplasia without atypia.? Calcifications seen.? Moderate intraductal hyperplasia without atypia.? No evidence of malignancy She has had updated bilateral screening mammography on May 12, 2022 as noted below.? I have personally reviewed those mammogram images.? In the deep central right breast there are a small number of microcalcifications consistent with the patient's previous stereotactic core biopsy but there is some dense scarring perhaps even slight spiculation which is not commented upon by the radiologist. The patient notes that she has intermittent twinges of discomfort in the right breast more recently.? She herself however is not able to detect any mass Right breast, microcalcifications, stereotactic needle core biopsy: ?Intraductal papilloma with focal area of intraductal hyperplasia without atypia and calcifications. ?Moderate intraductal hyperplasia without atypia. ?Negative for malignancy. May 12, 2022 MAMMOGRAPHY - BILATERAL SCREENING REASON FOR EXAM:? ? Female, 81 years old.? Routine annual screening examination. PERTINENT HISTORY:? Non-contributory.? Prior right stereotactic breast biopsy.? Chronic inversion of the left nipple. TECHNIQUE: ? Digital bilateral breast mary (3D mammographic acquisition) in the CC and MLO projections. 2-D mediolateral oblique (MLO) and craniocaudad (CC) views of both breasts were obtained.? CAD: Full Field Digital Mammography with Computer Added Detection was performed. COMPARISON: ? Comparison is made with prior study 04/30/2021 and 04/28/2021. FINDINGS: Breast Composition:? The breasts are heterogeneously dense, which may obscure small masses. There are no dominant masses or suspicious calcifications.? A tissue clip marker is seen in the central portion of the right breast in keeping with prior stereotactic biopsy.? The number of the calcifications in the cluster has decreased.? Stable scattered bilateral microcalcifications. No other significant abnormalities are identified. BI/SCRN MAMM (CAD)W/MARY BILAT IMPRESSION: Stable bilateral screening mammogram.? Yearly follow-up mammogram recommended. ? (A) ? ? ASSESSMENT CATEGORY: BIRADS Category 2:? Benign.? A letter regarding these results will be sent to the patient by the facility within 30 days. ? Approximately 10% of breast cancers are not detected by mammography.? A normal mammogram should not delay biopsy of a clinically suspicious abnormality. ? [id number] ? Electronically Signed: Clovis Dick MD at 12:39 EST , Exam Chest Other: Right breast: Well-healed incision upper mid right breast.? Diffuse fibrous change of the right breast.? I cannot detect distinct mass.? No tenderness.? No nipple discharge.? No axillary clavicular adenopathy Left breast: Diffuse fibrous change.? No nipple discharge.? No axillary clavicular adenopathy Assessment and Plan Assessment and Plan (1) Intraductal papilloma of right breast: ?Status:?Acute ?Plan: I have explained to the patient I have personally reviewed her right mammograms and there is a density present I am not able to detect whether this represents post needle core biopsy scar tissue or in a different finding.? I do not believe that the films are completely normal.? We discussed breath ultrasound but I do not think that is going to provide a definitive answer.? I discussed repeat stereotactic needle core biopsy of the area.? I also discussed stereotactic wire localization with excision of the area.? She is [age] years of age.? She is aware of technique, benefit, risk of alternatives.? She does take aspirin which she will need to hold for a week.? She cannot decide as to how she would like to proceed at the moment.? 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 I have asked her to give us a phone call back in a couple days or so with a determination as to how she would like to proceed.? I am leaning toward recommending a tissue sampling of this area either with a stereotactic biopsy or complete excision of the area with a stereotactic wire local excision pending h er determination. I appreciate the ongoing opportunity of assisting with her surgical care Moses Hillman M.D., F.A.C.S ROS General General: No weight change, appetite, fatigue, colon cancer, breast cancer or weakness HEENT HEENT: No difficulty swallowing, eye injury, eye surgery, swollen glands or hoarseness Endo Endocrine: No thyroid disease, diabetes mellitus, thyroid cancer, Hair loss, heat intolerance or cold intolerance Skin Skin: No rash or changing moles Breast Breast: Yes abnormal mammogram; No left breast lump, right breast lump, nipple discharge, breast pain, abnormal US or breast enlargement Musc Musculoskeletal: Yes arthritis; No back problems, rheumatoid arthritis, gout or joint pain Cardio Cardiovascular: Yes high blood pressure; No murmur, pacemaker, heart disease, atrial fibrillation, heart attack, heart stent, palpitations, shortness of breat with exertion or chest pain Psych Psychiatric: No depression, anxiety or hearing voices Resp Respiratory: No shortness of breath, No sleep apnea, No cough, No COPD, No asthma, No emphysema and No wheezing Gastro Gastrointestinal: No abdominal pain, No nausea or vomiting, No diarrhea, No constipation, No blood in stool, No acid reflux, No hemorrhoids, No ulcers, No gallbladder problem and No black,tarry stools Fadi Hematologic: No blood thinners, No blood disorders, No bleeding, No anemia and No blood clots Additional Details: Baby ASA daily Neuro Neurologic: No system reviewed and no additional complaints, except as documented, No as per HPI, No abnormal gait, No abnormal hearing, No abnormal movements, No abnormal speech, No behavioral changes, No burning sensations, No confusion, No convulsions, No disequilibrium, No dizziness, No localized weakness, No frequent falls, No headache(s), No lack of coordination, No loss of vision, No memory loss, No numbness, No other visual disturbances, No radicular pain, No restless legs, No sensory deficit, No syncope, No tingling, No tremor(s), No weakness and No other Exam Const General: cooperative, healthy appearing, comfortable and no acute distress [facility] Head: normal to inspection Chest Other: Right breast: Ecchymosis and hematoma upper mid right breast.? Nontender.? No drainage.? No axillary adenopathy. Resp Effort & Inspection: normal respiratory effort Auscultation: clear to auscultation bilaterally Cardio Rate: regular rate Rhythm: regular rhythm GI Other: Soft, nontender Musc Cervical Spine: normal cervical lordosis Skin General: no rashes or lesions noted Extrem General: no calf tenderness Psych Appearance: grossly normal Assessment and Plan Assessment and Plan (1) Intraductal papillary carcinoma: ?Status:?Acute ?Comment: This process involves the right breast.? It is not invasive cancer.? This does not represent pancreatic ductal carcinoma Plan Intraductal papillary carcinoma central right breast.? No evidence for invasive cancer.? I propose for the patient a stereotactic wire localization with then lumpectomy.? [place] lymph node biopsy will not be required.? I have discussed with her the technique, benefit, risk and alternatives.? We will make every effort to accomplish this in a timely fashion.? She has had an opportunity ask and have questions answered.? She is aware that post operatively then I would anticipate hematology oncology consultation.? She has had an opportunity to ask any questions answered.? She suggest that one of her daughters has had lobular carcinoma in situ.? I suggested you that this would be a similar though not identical process. Copy:Ca Garg , DO Moses Hillman M.D., F.A.C.S I have examined the patient and the H&P has been reviewed. There are no clinical changes since date of exam. Moses Hillman M.D., F.A.C.S.
--- NOTE | 2022-06-03 12:48 | PCM.OPRPT ---
Problems Associated Problem List Diagnoses (1) Intraductal papilloma of right breast: Report of Operation Date of Procedure: 06/03/22 Pre-Operative Diagnosis: Intraductal papillary carcinoma right breast Post-Operative Diagnosis: Same Surgery/Procedure Performed:: Stereotactic wire localization right breast Wire localized central outer right breast lumpectomy Description of Surgical Findings:: Timeout informed consent was obtained. 81-year-old female was taken to the stereotactic room. She placed prone on the table. The right breast was placed in the cc view. The previously to place marking clips were rapidly identified. Stereotactic images were obtained. Digital permission was obtained on a single target site. The breast was prepped with Betadine. 1% lidocaine was used as a local anesthetic. 1 cc was used. A 20-gauge Kopan's needle was advanced to prefire depth +15 mm. On fast view demonstrated excellent localization. Tape and sterile dressings were used to secure the wire. She was released from the device. Mediolateral view was obtained demonstrating adequate localization. The patient was subsequently sent to the operating room for planned definitive resection. The patient presented to the operating room. She was placed upon the table. She underwent general anesthesia. Ancef 2 g were given intravenously. The right breast was sterilely prepped and draped. A curvilinear incision the upper mid right breast sharp dissection carried down through the subcutaneous tissue circumferential dissection was performed close to the tip of the wire. There was a masslike effect likely related to the hematoma that was able to get complete resection around this however inferiorly there is a small gape and that shall and there was some exudate of old hematoma blood I excised that cavity and then at the site where the primary cavity had some thinness and leakage I took a repeat resection of the inferior margin placed a silk suture at the newest margin component of that fragment and then sent that tissue as well. Hemostasis was obtained with electrocautery. There was some more dense fibrous type of tissue inferiorly in the breast which would represent the superior edge of the areola and ductal system. I could not see or feel any residual tumor. Hemostasis attained electrocautery and interrupted 3-0 Vicryl. Subdermal tissues approximately the same after I placed 4 corner heat hemoclips for marking. Subdermal tissue approximated up to 3-0 Vicryl skin edges proximal and subicular 4 Monocryl the helio-incisional was anesthetized with 30 cc of 0.5% Marcaine Steri-Strips Telfa OpSite followed by a bulky dry dressings. Sponge and instrument and needle counts were reported to the surgeon to be correct. Specimens right breast lumpectomy. Drains none. Blood loss minimal. This was felt to be intraductal papillary carcinoma in situ lesion with no evidence of invasive cancer. Therefore no sentinel lymph node biopsy with blue dye or nuclear tracer was performed. The patient was taken to the recovery room in satisfied condition without apparent complication Moses Hillman M.D., F.A.C.S. Surgeon: Moses Hillman Type of Anesthesia: General and Local Anesthesiologist: Edy Landaverde
--- NOTE | 2022-06-03 12:53 | DCINST_ITS ---
Discharge Instructions Procedure Breast Surgery Diet Discharge Diet: No restrictions Activity Discharge Activity: May Not Drive (for 2-3 days or while taking narcotic pain meds.) May shower in (days): 1 Lifting Restrictions: 10 pounds for 1 week. Dressing / Incision Call your doctor if your incision/area has: Continuous Slow Oozing and Sudden Increased Bleeding Call your doctor if you observe: Fever of 101 or Higher Suture Line Care: Avoid Pulling/Pushing and Avoid Pinching/Bending Remove Dressing in: 1 day Additional Dressing/Incision Instructions:: Remove bulky dressing tomorrow. May leave any opsite dressing for 3-4 days. Keep dressing in place until your follow-up appointment. Follow Up Care Please Follow Up With: Moses Hillman MD When: Please call for office follow-up in approximately 7 to 10 days [phone] Test Results: Test results from this visit will be discussed in further detail at your follow- up appointment, if applicable. Discharge Plan Admission Primary Reason for Your Visit: Intraductal papillary carcinoma right breast Attending Provider: Moses Hillman Primary Care Provider: Ca Garg Discharge Orders/Prescriptions Prescriptions: New hydrocodone-acetaminophen 5-325 mg tablet 1 tab PO Q6H PRN (Reason: pain) 2 Days Qty: 5 0RF Continued levothyroxine [Synthroid] 88 mcg tablet 88 mcg PO DAILY lisinopril 20 mg tablet 20 mg PO DAILY Label Comments: TAKE 1 TABLET BY MOUTH EVERY DAY latanoprost 0.005 % drops 1 drp ophthalmic (eye) QHS carbamazepine 100 mg tablet,chewable 50 mg PO BID Qty: 90 2RF atorvastatin 10 MG tablet 10 mg PO QHS aspirin 81 MG tablet 81 mg PO DAILY@0800 triamterene-hydrochlorothiazid [Maxzide-25mg] 1 EACH tablet 0.5 tab PO DAILY cholecalciferol (vitamin D3) [Vitamin D3] 50 mcg (2,000 unit) capsule 2,000 unit PO DAILY clotrimazole [Lotrimin AF (clotrimazole)] 1 % Cream 1 applic TOPICAL PRN PRN (Reason: GROIN) Referrals / Follow Up: Ca Garg DO [Primary Care Provider] - Disposition Disposition (needs filled in before D/C Order can be placed): Home, Self Care
[2022-06-03] MEDS: Cefazolin 2 GM in 0.9% Normal Saline 100 ML IV (12:56)
[2022-06-03] MEDS: Bupivacaine Mpf 0.5% 30 ML VIAL (13:58)
[2022-06-03] MEDS: HYDROcodone Bitartrate/Apap 5/325 Tablet PO (15:50)
== END 2022-06-03 17:10 | disposition home or self-care (01) ==
LOC: SDC 11:03 → AC 11:06
PROVIDERS: PCP Family Medicine; Visit Provider Surgery
PROC: (CPT 19301; principal; 2022-06-03 12:50)
DX: D05.11 Intraductal carcinoma in situ of right breast (principal); N60.21 Fibroadenosis of right breast; I10 Essential (primary) hypertension; G50.0 Trigeminal neuralgia; E07.9 Disorder of thyroid, unspecified; E78.00 Pure hypercholesterolemia, unspecified; Z79.899 Other long term (current) drug therapy; Z79.82 Long term (current) use of aspirin
CPT/HCPCS: 19301; 19281; 76098; 80048; 85027; 88305; 88341; 88342; 93005; J7120; J2405

== ENCOUNTER → 2022-07-14 | Outpatient (CLI) | payer MEDICARE, OTHER, SELFPAY ==
[2022-07-14 12:40] LABS: Microalbumin,Random Urine 13.6 mg/L (NO RANGE EST.)
[2022-07-14 13:09] LABS: Vitamin D,25 Hydroxy 38.9 ng/mL
[2022-07-14 13:14] LABS: Cholesterol 188 mg/dL (200); High Density Lipoprotein 74 mg/dL; Triglycerides 94 mg/dL; Very Low Density Lipoprotein 19 mg/dL (5-40)
== END | disposition home or self-care (01) ==
LOC: MFPLAB 10:28
PROVIDERS: PCP Family Medicine; Referring Provider Family Medicine; Visit Provider Family Medicine
DX: E78.00 Pure hypercholesterolemia, unspecified (principal); I10 Essential (primary) hypertension; E55.9 Vitamin D deficiency, unspecified
CPT/HCPCS: 36415; 80061; 82043; 82306; 84443

== ENCOUNTER → 2022-12-16 | Outpatient (CLI) | payer MEDICARE, OTHER, SELFPAY ==
[2022-12-16 12:17] LABS: Hematocrit 46.3 % (37-47); Hemoglobin 14.4 g/dL (12.0-15.0); Mean Corp Hgb Conc 31.1 g/dL (32-36); Mean Corpuscular Hgb 29.3 pg (27.0-32.0); Mean Corpuscular Volume 94.3 fL (81-99); Mean Platelet Vol. 10.3 fl (6.2-12.0); Platelet Count 216 K/mm3 (150-450); RBC Distribution Width CV 13.7 % (11.6-14.6); RBC Distribution Width SD 46.9 fl (35.1-43.9); Red Blood Count 4.91 M/mm3 (4.2-5.4); White Blood Count 5.6 K/mm3 (4.4-11.0)
[2022-12-16 13:40] LABS: ALB/GLOB Ratio 1.2 RATIO (0.9-2.4); AST(SGOT) 19 U/L (15-37); Alanine Aminotransfer ALT/SGPT 21 U/L (13-56); Albumin, Serum 3.7 g/dL (3.2-5.0); Alkaline Phosphatase 117 U/L (45-117); Anion Gap 4 (5-15); BUN 18 mg/dL (7-18); Calcium,Total 9.4 mg/dL (8.5-10.1); Chloride 104 mmol/L (98-107); Cholesterol 197 mg/dL (200); Creatinine, Serum 0.82 mg/dL (0.55-1.02); EST Glomerular Filtration Rate 71 mL/min (>60); Est Glom Filt Rate - Afr Amer 86 mL/min (>60); Globulin 3.2 g/dL (2.2-4.2); Glucose 86 mg/dL (74-106); High Density Lipoprotein 77 mg/dL; Protein, Total 6.9 g/dL (6.4-8.2); Sodium Level 138 mmol/L (136-145); Triglycerides 109 mg/dL; Very Low Density Lipoprotein 22 mg/dL (5-40)
[2022-12-16 13:51] LABS: Carbamazepine (Tegretol) 3.3 ug/mL (4.0-12.0)
== END | disposition home or self-care (01) ==
PROVIDERS: PCP Family Medicine; Referring Provider Psychiatry & Neurology Neurology; Visit Provider Psychiatry & Neurology Neurology
DX: E78.5 Hyperlipidemia, unspecified (principal); G50.0 Trigeminal neuralgia
CPT/HCPCS: 36415; 80053; 80061; 80156; 85027

== ENCOUNTER → 2023-05-13 | Outpatient (CLI) | payer MEDICARE, OTHER, SELFPAY ==
--- NOTE | 2023-05-13 10:41 | BI_ITS ---
MAMMOGRAPHY - BILATERAL SCREENING REASON FOR EXAM: Female, 82 years old. Routine annual screening examination. PERTINENT HISTORY: Personal history of breast cancer. Prior right lumpectomy. Chronic inversion of the left nipple. TECHNIQUE: Digital bilateral breast mary (3D mammographic acquisition) in the CC and MLO projections. 2-D mediolateral oblique (MLO) and craniocaudad (CC) views of both breasts were obtained. CAD: Full Field Digital Mammography with Computer Added Detection was performed. COMPARISON: Comparison is made with prior study dated November 09, 2022 and April 30 FINDINGS: Breast Composition: The breasts are heterogeneously dense, which may obscure small masses. The patient is status post lumpectomy in the central midportion of the right breast there is AND postoperative scarring and the overlying skin thickening and breast deformity. No other significant abnormalities are identified. BI/SCRN MAMM (CAD)W/MARY BILAT IMPRESSION: Status post lumpectomy in the central midportion of the right breast with resultant postoperative scarring and skin thickening and breast deformity. Yearly follow-up mammogram recommended. (A) ASSESSMENT CATEGORY: BIRADS Category 2: Benign. A letter regarding these results will be sent to the patient by the facility within 30 days. Approximately 10% of breast cancers are not detected by mammography. A normal mammogram should not delay biopsy of a clinically suspicious abnormality. [id number] Electronically Signed: Clovis Dick MD at 9:59 EST ,
--- OUTSIDE RECORDS SUMMARY | 2023-05-13 11:00 | XMS RPT_ITS | CCD ---
Author Name Unknown Address [address] [place] [address] Organization [facility] Care Team Providers Care Assisted Living Assistant Name Role Phone ALICE CARNEY Attending Unavailable DAPHNE BRANNON Referring Unavailable Unavailable Primary Care Provider Unavailabl e Medications Completed/Discontinued Medications Medication Drug Class(es) Dates Sig (Normalized) Sig (Original) aspirin 81 mg chewable tablet (1 source) Platelet Aggregation Inhibitor, Nonsteroidal Anti-inflammatory Drug Start: 02-14-2007 take 81 mg by mouth once daily aspirin 81 mg ORAL Chew Take 81 mg by mouth once daily. 0 02/14/2007 Active Problems Problem Classification Problem Date Documented Da te Episodic/Chronic Cancer of breast (2 sources) Malignant neoplasm of central part of female breast; Translations: [Malignant neoplasm of central portion of right female breast] Onset: 06-22-2022 Chronic Results Test Name Value Interpretation Reference Range Facil ity Vital Signs Date Time Vital Sign Value Performing Clinician Lee mercado 06-22-2022 13:14-0500 Body height 160 cm Alice Carney MD Work Phone: [facility] 06-22-2022 13:14-0500 Body temperature 97.3 [degF] Alice Carney MD Work Phone: [facility] 06-22-2022 13:14-0500 Body weight 78.7 kg Alice Carney MD Work Phone: [facility] 06-22-2022 13:14-0500 Diastolic blood pressure 82 mm[Hg] Alice Carney MD Work Phone: [facility] 06-22-2022 13:14-0500 Heart rate 68 /min Alice Carney MD Work Phone: [facility] 06-22-2022 13:14-0500 SaO2% (BldA) [Mass fraction] 100 % Alice Carney MD Work Phone: [facility] 06-22-2022 13:14-0500 Systolic blood pressure 177 mm[Hg] Alice Carney MD Work Phone: [facility] Encounters Encounter Date Encounter Type Care Provider Facility Start: 06-22-2022 End: 06-22-2022 ambulatory ALICE CARNEY Facility:[facility] Plan of Treatment Date Care Activity Detail Author Start: 04-26-2022 ADVANCE DIRECTIVE DISCUSSION ADVANCE DIRECTIVE DISCUSSION [facility] Start: 04-26-2022 DEPRESSION ASSESSMENT DEPRESSION ASS ESSMENT [facility] Start: 2005 BONE DENSITY BONE DENSITY [facility] Start: 2005 PNEUMOCOCCAL: 65+ (1 - PCV) PNEUMOCOCCAL: 65+ (1 - PCV) [facility] Start: 12-24-2002 DIABETES SCREEN DIABETES SCREEN [facility] Start: 1990 SHINGRIX VACCINE (1 of 2) SUTTON GRIX VACCINE (1 of 2) [facility] Start: 1959 Urine microalbumin profile DTAP,TDAP ,TD (1 - Tdap) [facility] Payers Date Payer Category Payer Medicare [id number] 2022 Medicare MEDICARE MEDICAR E A AND B [id number] 2022-Present [phone] [address] [address] [place] [address] Medicare [id number] 2022 Private Health Insurance [facility] AARP SUPPLEMENT [id number] 2022-Present [phone] [address] [place] [address] Indemnity [id number] 2022 Unknown [id number] Social History Date Type Detail Facility Start: 06-22-2022 Tobacco smoking stat us NHIS Never smoked tobacco [facility] Start: 06-22-2022 Tobacco use and exposure Smoke less tobacco non-user [facility] Start: 06-22-2022 Alcohol intake Current drinke r of alcohol (finding) [facility] Start: 1940 Sex Assigned At Not on file [facility] Progress note 06-22-2022 Note Date & Type Note Facility 06-22-2022 Note HNO ID: [id number] Author: Alice Carney MD Service: ? Author Type: Physician Type: Progress Notes Filed: 06/23/2022 7:45 AM Note Text: SERVICE DATE: June 22, 2022 CHIEF COMPLAINT: Fadia Dorado is a 82 year old female referred by Daphne Brannon, for my opinion regarding the management of papillary carcinoma of the right breast. The impression and plan will be communicated back via the EMR or under separate cover letter if necessary. PMH, medications and allergies personally reviewed by me today. Any changes documented in appropriate section.. History was obtained from the patient and from review of the patient's old medical records. HISTORY OF PRESENT ILLNESS: Extremely pleasant 82-year-old white lady who is here for evaluation and management of right intraductal papillary carcinoma patient had an abnormal mammogram a year ago she underwent stereotactic biopsy that showed lobular hyperplasia with no atypia . Her surgeon astutely wanted follow-up in a year. A biopsy was done currently and showed intraductal papilloma and associated with papillary cancer. Lumpectomy was done with grossly a 5 cm sample. There was no evidence of malignancy. She is here to see if anything else is needed. The focus of papillary carcinoma was 2 mm Diagnostic Studies: Reviewed PAST MEDICAL HISTORY: PAST MEDICAL HISTORY Diagnosis Date Calculus of kidney Diverticulitis of colon with hemorrhage Essential hypertension, benign Other malignant neoplasm of other specified sites of skin Pure hypercholesterolemia Unspecified hypothyroidism PAST SURGICAL HISTORY: PAST SURGICAL HISTORY Procedure Laterality Date BREAST LUMPECTOMY HX Right 06/03/2022 LIG/TRNSXJ FLP TUBE ABDL/VAG APPR UNI/BI 04/26/1980 Tubal ligation NEPHROLITHOTOMY REMOVAL STAGE 1 04/26/1999 LITHLOTRIPSY TOTAL KNEE REPLACEMENT Left 2013 VAGINAL HYSTERECTOMY 1999 VAGINAL HYSTERECTOMY UTERUS 250 GM/< 04/26/2000 Hysterectomy, vaginal CURRENT MEDICATIONS: Cholecalciferol, Vitamin D3, (VITAMIN D-3) 50 mcg (2,000 unit) cap Take 2,000 Units by mouth once daily. carBAMazepine chewable (TEGRETOL) 100 mg chewable tablet Take 50 mg by mouth twice daily. 1/2 tablet BID to equal 100mg levothyroxine 100 mcg ORAL Tab Take 88 mcg by mouth once daily. lisinopril 10 mg ORAL Tab Take 20 mg by mouth once daily. triamterene-hydrochlorothiazide 37.5-25 mg ORAL Cap Take 0.5 capsules by mouth once daily. atorvastatin (LIPITOR) 10 mg ORAL Tab Take 10 mg by mouth once daily. aspirin 81 mg ORAL Chew Take 81 mg by mouth once daily. estrogens conjugated (PREMARIN) 0.625 mg ORAL Tab Take one(1) tablet daily. (Patient not taking: Reported on 06/22/2022) ALLERGIES/INTOLERANCES: ALLERGIES No Known Allergies FAMILY HISTORY: FAMILY HISTORY Problem Relation Age of Onset Hypertension Mother Hypertension Father Coronary Artery Disease Father Stroke Father No Known Problems Sister Hypertension Brother Hypertension Brother Lymphoma Brother Hypertension Brother Coronary Artery Disease Paternal Grandmother Stroke Paternal Grandmother SOCIAL HISTORY: Social History Tobacco Use Smoking status: Never Smokeless tobacco: Never Vaping Use Vaping Use: Never used Substance Use Topics Alcohol use: Yes Comment: LESS THAN 1 DAY Drug use: No ROS: No unexplained fever, night sweats or weight loss No breast discomfort, tenderness or nipple discharge Rest of review of systems is unremarkable PHYSICAL EXAM: BP 177/82 Pulse 68 Temp 36.3 ?C (97.3 ?F) Ht 160 cm (5' 2.99 ) Wt 78.7 kg (173 lb 8 oz) SpO2 100% BMI 30.74 kg/m2 Body mass index is 30.74 kg/m?. ECO No lymphadenopathy or palpable masses Lungs are clear to auscultation percussion No hepatosplenomegaly No JVD Efemia is full DATA REVIEW: I personally reviewed the patient's data and medical records. 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 Even antiestrogen therapy is not offered. I told them that with invasive breast cancer we will observe him for T1 a lesions. Daughter even ask about possibility of triple negativity. Again this does not apply since patient has definitive surgery which is the proper treatment. The other findings of hyperplasia are not associated with atypia so even the use of chemopreventive measures such as tamoxifen or an aromatase inhibitor does not apply. I instructed patient to return to office as needed The patient was able to ask questions and these were answered in detail. Thank you for the opportunity of participating in the care of this delightful lady. Alice Carney MD cc: Daphne Brannon No primary care provider on file. [facility] History of Present illness Narrative 06-22-2022 Alice Carney MD - 06/22/2022 4:58 PM EST Note Date & Type Note Facility 06-22-2022 History of Presen t illness Narrative Images from the original note were not included. SERVICE DATE: June 22, 2022 CHIEF COMPLAINT: Fadia Dorado is a 82 year old female referred by Daphne Brannon, for my opinion regarding the management of papillary carcinoma of the right breast. The impression and plan will be communicated back via the EMR or under separate cover letter if necessary. PMH, medications and allergies personally reviewed by me today. Any changes documented in appropriate section.. History was obtained from the patient and from review of the patient's old medical records. HISTORY OF PRESENT ILLNESS: Extremely pleasant 82-year-old white lady who is here for evaluation and management of right intraductal papillary carcinoma patient had an abnormal mammogram a year ago she underwent stereotactic biopsy that showed lobular hyperplasia with no atypia . Her surgeon astutely wanted follow-up in a year. A biopsy was done currently and showed intraductal papilloma and associated with papillary cancer. Lumpectomy was done with grossly a 5 cm sample. There was no evidence of malignancy. She is here to see if anything else is needed. The focus of papillary carcinoma was 2 mm Diagnostic Studies: Reviewed PAST MEDICAL HISTORY: PAST MEDICAL HISTORY Diagnosis Date Calculus of kidney Diverticulitis of colon with hemorrhage Essential hypertension, benign Other malignant neoplasm of other specified sites of skin Pure hypercholesterolemia Unspecified hypothyroidism PAST SURGICAL HISTORY: PAST SURGICAL HISTORY Procedure Laterality Date BREAST LUMPECTOMY HX Right 06/03/2022 LIG/TRNSXJ FLP TUBE ABDL/VAG APPR UNI/BI 04/26/1980 Tubal ligation NEPHROLITHOTOMY REMOVAL STAGE 1 04/26/1999 LITHLOTRIPSY TOTAL KNEE REPLACEMENT Left 2013 VAGINAL HYSTERECTOMY 1999 VAGINAL HYSTERECTOMY UTERUS 250 GM/< 04/26/2000 Hysterectomy, vaginal CURRENT MEDICATIONS: Cholecalciferol, Vitamin D3, (VITAMIN D-3) 50 mcg (2,000 unit) cap Take 2,000 Units by mouth once daily. carBAMazepine chewable (TEGRETOL) 100 mg chewable tablet Take 50 mg by mouth twice daily. 1/2 tablet BID to equal 100mg levothyroxine 100 mcg ORAL Tab Take 88 mcg by mouth once daily. lisinopril 10 mg ORAL Tab Take 20 mg by mouth once daily. triamterene-hydrochlorothiazide 37.5-25 mg ORAL Cap Take 0.5 capsules by mouth once daily. atorvastatin (LIPITOR) 10 mg ORAL Tab Take 10 mg by mouth once daily. aspirin 81 mg ORAL Chew Take 81 mg by mouth once daily. estrogens conjugated (PREMARIN) 0.625 mg ORAL Tab Take one(1) tablet daily. (Patient not taking: Reported on 06/22/2022) ALLERGIES/INTOLERANCES: ALLERGIES No Known Allergies FAMILY HISTORY: FAMILY HISTORY Problem Relation Age of Onset Hypertension Mother Hypertension Father Coronary Artery Disease Father Stroke Father No Known Problems Sister Hypertension Brother Hypertension Brother Lymphoma Brother Hypertension Brother Coronary Artery Disease Paternal Grandmother Stroke Paternal Grandmother SOCIAL HISTORY: Social History Tobacco Use Smoking status: Never Smokeless tobacco: Never Vaping Use Vaping Use: Never used Substance Use Topics Alcohol use: Yes Comment: LESS THAN 1 DAY Drug use: No ROS: No unexplained fever, night sweats or weight loss No breast discomfort, tenderness or nipple discharge Rest of review of systems is unremarkable PHYSICAL EXAM: BP 177/82 Pulse 68 Temp 36.3 C (97.3 F) Ht 160 cm (5' 2.99 ) Wt 78.7 kg (173 lb 8 oz) SpO2 100% BMI 30.74 kg/m2 Body mass index is 30.74 kg/m . ECO No lymphadenopathy or palpable masses Lungs are clear to auscultation percussion No hepatosplenomegaly No JVD Efemia is full DATA REVIEW: I personally reviewed the patient's data and medical records. 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 Even antiestrogen therapy is not offered. I told them that with invasive breast cancer we will observe him for T1 a lesions. Daughter even ask about possibility of triple negativity. Again this does not apply since patient has definitive surgery which is the proper treatment. The other findings of hyperplasia are not associated with atypia so even the use of chemopreventive measures such as tamoxifen or an aromatase inhibitor does not apply. I instructed patient to return to office as needed The patient was able to ask questions and these were answered in detail. Thank you for the opportunity of participating in the care of this delightful lady. Alice Carney MD cc: Daphne Brannon No primary care provider on file. documented in this encounter [facility] Evaluation note Note Date & Type Note Facility documented in this encounter [facility] Summary Purpose Family History No Family History Records Found Advance Directives No Advanced Directives Records Found Additional Source Comments INFORMATION SOURCE (unrecogn ized section and content) Source Comments (unrecognize d section and content) In the event this informatio n is protected by the Federal Confidentiality of Alcohol and Drug Abuse Patient Records regulations: The Federal rules restrict any use of the information to criminally investigate or prosecute any alcohol or drug abuse patient.[facility] Reason for Visit (unrecogniz ed section and content) FOR RECORDS PERTAINING TO PATIENTS WHO ARE OR HAVE BEEN ENROLLED IN A CHEMICAL DEPENDENCY/SUBSTANCEABUSE PROGRAM, SOME INFORMATION MAY BE OMITTED. This clinical summary was aggregated from multiple sources. Caution should be exercised in using it in the provision of clinical care. This summary normalizes information from multiple sources, and as a consequence, information in this document may materially change the coding, format and clinical context of patient data. In addition, data may be omitted in some cases. CLINICAL DECISIONS SHOULD BE BASED ON THE PRIMARY CLINICAL RECORDS. [employer] provides no warranty or guarantee of the accuracy or completeness of information in this document.
== END | disposition home or self-care (01) ==
LOC: OPBI 10:41
PROVIDERS: PCP Family Medicine; Referring Provider Surgery; Visit Provider Surgery
DX: Z12.31 Encounter for screening mammogram for malignant neoplasm of breast (principal)
CPT/HCPCS: 77063; 77067

== ENCOUNTER → 2023-09-21 | Outpatient (CLI) | payer MEDICARE, OTHER, SELFPAY ==
[2023-09-21 12:42] LABS: Hematocrit 43.5 % (37-47); Hemoglobin 13.8 g/dL (12.0-15.0); Mean Corp Hgb Conc 31.7 g/dL (32-36); Mean Corpuscular Hgb 29.3 pg (27.0-32.0); Mean Corpuscular Volume 92.4 fL (81-99); Mean Platelet Vol. 10.6 fl (6.2-12.0); Platelet Count 184 K/mm3 (150-450); RBC Distribution Width CV 13.7 % (11.6-14.6); RBC Distribution Width SD 46.4 fl (35.1-43.9); Red Blood Count 4.71 M/mm3 (4.2-5.4); White Blood Count 5.9 K/mm3 (4.4-11.0)
[2023-09-21 13:04] LABS: Carbamazepine (Tegretol) 5.1 ug/mL (4.0-12.0)
[2023-09-21 13:13] LABS: ALB/GLOB Ratio 1.1 RATIO (0.9-2.4); AST(SGOT) 19 U/L (15-37); Alanine Aminotransfer ALT/SGPT 20 U/L (13-56); Albumin, Serum 3.6 g/dL (3.2-5.0); Alkaline Phosphatase 110 U/L (45-117); Anion Gap 7 (5-15); BUN 26 mg/dL (7-18); BUN/Creat Ratio 30.5 RATIO (10-20); Calcium,Total 9.5 mg/dL (8.5-10.1); Chloride 104 mmol/L (98-107); Creatinine, Serum 0.85 mg/dL (0.55-1.02); EST Glomerular Filtration Rate 68 mL/min (>60); Est Glom Filt Rate - Afr Amer 82 mL/min (>60); Globulin 3.3 g/dL (2.2-4.2); Glucose 83 mg/dL (74-106); Protein, Total 6.9 g/dL (6.4-8.2); Sodium Level 139 mmol/L (136-145)
== END | disposition home or self-care (01) ==
LOC: MTLAB 10:11
PROVIDERS: PCP Family Medicine; Referring Provider Psychiatry & Neurology Neurology; Visit Provider Psychiatry & Neurology Neurology
DX: G50.0 Trigeminal neuralgia (principal)
CPT/HCPCS: 80053; 80156; 85027

== ENCOUNTER → 2023-12-28 | Outpatient (CLI) | payer MEDICARE, OTHER, SELFPAY ==
[2023-12-28 12:20] LABS: Hematocrit 42.4 % (37-47); Hemoglobin 13.7 g/dL (12.0-15.0); Mean Corp Hgb Conc 32.3 g/dL (32-36); Mean Corpuscular Hgb 29.8 pg (27.0-32.0); Mean Corpuscular Volume 92.2 fL (81-99); Mean Platelet Vol. 9.9 fl (6.2-12.0); Platelet Count 190 K/mm3 (150-450); RBC Distribution Width CV 14.1 % (11.6-14.6); RBC Distribution Width SD 47.5 fl (35.1-43.9); White Blood Count 5.2 K/mm3 (4.4-11.0)
[2023-12-28 12:43] LABS: ALB/GLOB Ratio 1.1 RATIO (0.9-2.4); AST(SGOT) 16 U/L (15-37); Alanine Aminotransfer ALT/SGPT 18 U/L (13-56); Albumin, Serum 3.5 g/dL (3.2-5.0); Alkaline Phosphatase 114 U/L (45-117); Anion Gap 5 (5-15); BUN 16 mg/dL (7-18); BUN/Creat Ratio 22.1 RATIO (10-20); Calcium,Total 9.7 mg/dL (8.5-10.1); Chloride 100 mmol/L (98-107); Creatinine, Serum 0.72 mg/dL (0.55-1.02); EST Glomerular Filtration Rate 82 mL/min (>60); Est Glom Filt Rate - Afr Amer 99 mL/min (>60); Globulin 3.1 g/dL (2.2-4.2); Glucose 88 mg/dL (74-106); Potassium 4.7 mmol/L (3.5-5.1); Protein, Total 6.6 g/dL (6.4-8.2); Sodium Level 135 mmol/L (136-145)
[2023-12-28 13:13] LABS: Carbamazepine (Tegretol) 7.6 ug/mL (4.0-12.0)
== END | disposition home or self-care (01) ==
LOC: MTLAB 10:27
PROVIDERS: PCP Family Medicine; Referring Provider Psychiatry & Neurology Neurology; Visit Provider Psychiatry & Neurology Neurology
DX: G50.0 Trigeminal neuralgia (principal)
CPT/HCPCS: 36415; 80053; 80156; 85027

== ENCOUNTER → 2024-02-21 | Outpatient (CLI) | payer MEDICARE, OTHER, SELFPAY ==
--- NOTE | 2024-02-21 16:17 | RAD_ITS ---
INDICATION: Neck pain EXAMINATION/TECHNIQUE: X-RAY - XR Spine Cervical 4 or 5 Views COMPARISON: No relevant prior comparison study available FINDINGS: VERTEBRAE: Preserved vertebral body height. Demineralization of the osseous structures. Minimal anterolisthesis of C4 over C5. Straightening of the cervical spine. No significant facet arthropathy. DISCS: Mild narrowing of C4-C5 disc space. No critical stenosis is seen. NECK SOFT TISSUES: No prevertebral soft tissue widening. LUNG APICES: Clear. RAD/Cerv Spine 4 or 5 Views IMPRESSION: Degenerative changes as described above.. Electronically Signed: Orlando Mehta MD at 12:33 EDT ,
--- NOTE | 2024-02-21 16:25 | RAD_ITS ---
INDICATION: Concern for sarcoid EXAMINATION/TECHNIQUE: X-RAY - XR Chest 2 Views COMPARISON: No relevant prior comparison study available FINDINGS: LINES/DEVICES: None. LUNGS: No consolidation, edema or effusion. No pneumothorax. MEDIASTINUM AND CARDIOVASCULAR STRUCTURES: Cardiac silhouette not enlarged. Atherosclerotic calcifications of the aortic arch. Central airways and mediastinal contour are unremarkable. BONES AND SOFT TISSUES: Unremarkable. RAD/Chest PA and Lateral IMPRESSION: No radiographic evidence of acute cardiopulmonary disease. Electronically Signed: Orlando Mehta MD at 12:29 EDT ,
== END | disposition home or self-care (01) ==
LOC: MTRAD 16:17
PROVIDERS: PCP Family Medicine; Referring Provider Family Medicine; Visit Provider Family Medicine
DX: M54.2 Cervicalgia (principal); L52 Erythema nodosum
CPT/HCPCS: 71046; 72050

== ENCOUNTER → 2024-03-17 | Outpatient (CLI) | payer MEDICARE, OTHER, SELFPAY ==
[2024-03-17 17:32] LABS: Absolute Neutrophil Count 4.4 X10^3/uL (2.0-7.7); Basophil# 0.04 X10^3/uL; Basophil% 0.6 % (0-1); Eosinophil# 0.17 X10^3/uL; Eosinophils% 2.7 % (0-5); Hematocrit 41.1 % (37-47); Hemoglobin 12.7 g/dL (12.0-15.0); Lymphocyte % 17.5 % (19-41); Mean Corp Hgb Conc 30.9 g/dL (32-36); Mean Corpuscular Hgb 29.4 pg (27.0-32.0); Mean Corpuscular Volume 95.1 fL (81-99); Mean Platelet Vol. 10.2 fl (6.2-12.0); Monocyte# 0.61 X10^3/uL; Monocyte% 9.7 % (0-10); NRBC Flagged by Analyzer 0 % (0-5); Neutrophil # 4.36 X10^3/uL (2.7-7.7); Neutrophil % 69.2 % (47-70); Platelet Count 242 K/mm3 (150-450); RBC Distribution Width CV 14.3 % (11.6-14.6); RBC Distribution Width SD 50.4 fl (35.1-43.9); Red Blood Count 4.32 M/mm3 (4.2-5.4); White Blood Count 6.3 K/mm3 (4.4-11.0)
[2024-03-17 17:58] LABS: Erythrocyte Sedimentation Rate 9 mm/hr (0-30)
[2024-03-17 18:14] LABS: ALB/GLOB Ratio 0.9 RATIO (0.9-2.4); AST(SGOT) 15 U/L (15-37); Alanine Aminotransfer ALT/SGPT 20 U/L (13-56); Albumin, Serum 3.5 g/dL (3.2-5.0); Alkaline Phosphatase 129 U/L (45-117); Anion Gap 8 (5-15); BUN 21 mg/dL (7-18); BUN/Creat Ratio 26.2 RATIO (10-20); Calcium,Total 9.4 mg/dL (8.5-10.1); Chloride 101 mmol/L (98-107); EST Glomerular Filtration Rate 72 mL/min (>60); Est Glom Filt Rate - Afr Amer 88 mL/min (>60); Globulin 3.9 g/dL (2.2-4.2); Glucose 120 mg/dL (74-106); Potassium 3.6 mmol/L (3.5-5.1); Protein, Total 7.4 g/dL (6.4-8.2); Rheumatoid Factor < 10.0 IU/mL (<15); Sodium Level 137 mmol/L (136-145)
[2024-03-17 18:31] LABS: Hepatitis B Surface Antibody Non-Reactive; Hepatitis B Surface Antigen Non-Reactive (Nonreactive); Hepatitis C Antibody Non-Reactive (Nonreactive)
[2024-03-20 11:08] LABS: ANTINUCLEAR ANTIBODIES DIRECT Negative (Negative)
[2024-03-22 10:10] LABS: CCP IgG Antibodies 34 units (0-19); QNTFERON TB Mitogen Value > 10.00 IU/mL (.); QNTFERON TB Nil Value 0.04 IU/mL (.); QNTFERON TB1+ Ag Value 0.23 IU/mL (.); QNTFERON TB2+ Ag Value 0.04 IU/mL (.); QNTIFERON TB Positive Criteria Negative (Negative)
== END | disposition home or self-care (01) ==
LOC: MTLAB 15:04
PROVIDERS: PCP Family Medicine; Referring Provider Internal Medicine Rheumatology; Visit Provider Internal Medicine Rheumatology
DX: M06.4 Inflammatory polyarthropathy (principal); M17.0 Bilateral primary osteoarthritis of knee; L52 Erythema nodosum
CPT/HCPCS: 36415; 80053; 81002; 85025; 85652; 86038; 86140; 86200; 86431; 86480; 86706; 86803; 87340

== ENCOUNTER → 2024-03-18 | Outpatient (CLI) | payer MEDICARE, OTHER, SELFPAY ==
[2024-03-18 10:18] LABS: Color, Urine Yellow (Yellow); Glucose, Dipstick Normal (Normal); Ketone-Dipstick Negative (Negative); Leukocyte Esterase-Dipstick Negative /ul (Negative); Nitrite-Dipstick Negative (Negative); Occult Blood-Urine 10 /ul (Negative); Protein-Dipstick Negative (Negative); Specific Gravity, Urine 1.015 (1.002-1.030); Urine Bilirubin Dipstick Negative (Negative); Urine Clarity Clear (Clear); Urine Urobilinogen Normal (Normal)
== END | disposition home or self-care (01) ==
LOC: LAB 10:00
PROVIDERS: PCP Family Medicine; Referring Provider Internal Medicine Rheumatology; Visit Provider Internal Medicine Rheumatology
DX: M06.4 Inflammatory polyarthropathy (principal); M17.0 Bilateral primary osteoarthritis of knee; L52 Erythema nodosum
CPT/HCPCS: 81002

== ENCOUNTER → 2024-05-15 | Outpatient (CLI) | payer MEDICARE, OTHER, SELFPAY ==
--- NOTE | 2024-05-15 11:56 | BI_ITS ---
MAMMOGRAPHY - BILATERAL SCREENING REASON FOR EXAM: Female, 83 years old. Routine annual screening examination. PERTINENT HISTORY: Non-contributory. Prior right lumpectomy. History of prior right stereotactic breast biopsy. TECHNIQUE: Digital bilateral breast mary (3D mammographic acquisition) in the CC and MLO projections. 2-D mediolateral oblique (MLO) and craniocaudad (CC) views of both breasts were obtained. CAD: Full Field Digital Mammography with Computer Added Detection was performed. COMPARISON: Comparison is made with prior study dated May 13, 2023 and June 03, 2022. FINDINGS: Breast Composition: The breasts are heterogeneously dense, which may obscure small masses. There are no dominant masses or suspicious calcifications. Once again, the patient is status post lumpectomy in the central midportion of the right breast with resultant postoperative scarring and deformity. This is unchanged. Scattered bilateral macrocalcifications. No other significant abnormalities are identified. There has been no significant change since the prior study. BI/SCRN MAMM (CAD)W/MARY BILAT IMPRESSION: Stable bilateral screening mammogram. Yearly follow-up mammogram recommended. (A) ASSESSMENT CATEGORY: BIRADS Category 2: Benign. A letter regarding these results will be sent to the patient by the facility within 30 days. Approximately 10% of breast cancers are not detected by mammography. A normal mammogram should not delay biopsy of a clinically suspicious abnormality. [id number] Electronically Signed: Clovis Dick MD at 13:47 EST ,
== END | disposition home or self-care (01) ==
LOC: OPBI 11:55
PROVIDERS: PCP Family Medicine; Referring Provider Surgery; Visit Provider Surgery
DX: Z12.31 Encounter for screening mammogram for malignant neoplasm of breast (principal)
CPT/HCPCS: 77063; 77067

== ENCOUNTER → 2024-05-31 | Outpatient (CLI) | payer MEDICARE, OTHER, SELFPAY ==
[2024-05-31 17:52] LABS: Absolute Lymphocyte Count 0.97 X10^3/uL (0.83-4.51); Absolute Neutrophil Count 3.3 X10^3/uL (2.0-7.7); Basophil# 0.03 X10^3/uL; Basophil% 0.6 % (0-1); Eosinophil# 0.14 X10^3/uL; Eosinophils% 2.8 % (0-5); Hematocrit 42.5 % (37-47); Hemoglobin 13.2 g/dL (12.0-15.0); Lymphocyte # 0.97 X10^3/ul (0.83-4.51); Lymphocyte % 19.4 % (19-41); Mean Corp Hgb Conc 31.1 g/dL (32-36); Mean Corpuscular Hgb 29.7 pg (27.0-32.0); Mean Corpuscular Volume 95.5 fL (81-99); Mean Platelet Vol. 10.8 fl (6.2-12.0); Monocyte# 0.57 X10^3/uL; Monocyte% 11.4 % (0-10); NRBC Flagged by Analyzer 0 % (0-5); Neutrophil # 3.28 X10^3/uL (2.7-7.7); Neutrophil % 65.6 % (47-70); Platelet Count 218 K/mm3 (150-450); RBC Distribution Width CV 13.9 % (11.6-14.6); RBC Distribution Width SD 49.1 fl (35.1-43.9); Red Blood Count 4.45 M/mm3 (4.2-5.4)
[2024-05-31 18:08] LABS: ALB/GLOB Ratio 1.1 RATIO (0.9-2.4); AST(SGOT) 16 U/L (15-37); Alanine Aminotransfer ALT/SGPT 19 U/L (13-56); Albumin, Serum 3.7 g/dL (3.2-5.0); Alkaline Phosphatase 122 U/L (45-117); Anion Gap 7 (5-15); BUN 23 mg/dL (7-18); BUN/Creat Ratio 23.3 RATIO (10-20); Calcium,Total 9.2 mg/dL (8.5-10.1); Chloride 102 mmol/L (98-107); Creatinine, Serum 0.99 mg/dL (0.55-1.02); EST Glomerular Filtration Rate 57 mL/min (>60); Est Glom Filt Rate - Afr Amer 69 mL/min (>60); Globulin 3.4 g/dL (2.2-4.2); Glucose 92 mg/dL (74-106); Potassium 3.9 mmol/L (3.5-5.1); Protein, Total 7.1 g/dL (6.4-8.2); Sodium Level 137 mmol/L (136-145)
== END | disposition home or self-care (01) ==
LOC: MTLAB 14:21
PROVIDERS: PCP Family Medicine; Referring Provider Internal Medicine Rheumatology; Visit Provider Internal Medicine Rheumatology
DX: M06.4 Inflammatory polyarthropathy (principal); M17.0 Bilateral primary osteoarthritis of knee; L52 Erythema nodosum
CPT/HCPCS: 36415; 80053; 85025; 86140

== ENCOUNTER → 2024-06-23 | Outpatient (CLI) | payer MEDICARE, OTHER, SELFPAY ==
[2024-06-23 10:23] LABS: Hematocrit 43.4 % (37-47); Hemoglobin 13.8 g/dL (12.0-15.0); Mean Corp Hgb Conc 31.8 g/dL (32-36); Mean Corpuscular Hgb 30.4 pg (27.0-32.0); Mean Corpuscular Volume 95.6 fL (81-99); Mean Platelet Vol. 10.1 fl (6.2-12.0); Platelet Count 222 K/mm3 (150-450); RBC Distribution Width CV 13.8 % (11.6-14.6); RBC Distribution Width SD 48.8 fl (35.1-43.9); Red Blood Count 4.54 M/mm3 (4.2-5.4); White Blood Count 5.1 K/mm3 (4.4-11.0)
[2024-06-23 11:13] LABS: ALB/GLOB Ratio 1.7 RATIO (0.9-2.4); AST(SGOT) 36 U/L (<=31); Alanine Aminotransfer ALT/SGPT 36 U/L (<=34); Albumin, Serum 4.1 g/dL (3.4-4.8); Alkaline Phosphatase 120 U/L (35-104); Anion Gap 9 (5-15); BUN 18 mg/dL (4-19); Calcium 9.6 mg/dL (7.6-11.0); Carbon Dioxide 28.7 mmol/L (22.0-29.0); Chloride 103 mmol/L (96-108); Creatinine, Serum 0.74 mg/dL (0.70-1.20); EST Glomerular Filtration Rate 80 (>60); Globulin 2.4 g/dL (2.2-4.2); Glucose 100 mg/dL (70-99); Potassium 4.2 mmol/L (3.3-5.1); Protein, Total 6.5 g/dL (5.9-8.4); Sodium Level 141 mmol/L (133-145); Total Bilirubin 0.24 mg/dL (0.00-1.30)
[2024-06-23 13:04] LABS: Carbamazepine (Tegretol) 3.3 ug/mL (4.0-12.0); Phenytoin (Dilantin) Level 19.2 mL (10.0-20.0)
== END | disposition home or self-care (01) ==
LOC: MTLAB 09:08
PROVIDERS: PCP Family Medicine; Referring Provider Psychiatry & Neurology Neurology; Visit Provider Psychiatry & Neurology Neurology
DX: G50.0 Trigeminal neuralgia (principal)
CPT/HCPCS: 36415; 80053; 80156; 80185; 85027

== ENCOUNTER → 2024-08-29 | Outpatient (CLI) | payer MEDICARE, OTHER, SELFPAY ==
[2024-08-29 17:48] LABS: Hematocrit 41.3 % (37-47); Hemoglobin 13.7 g/dL (12.0-15.0); Mean Corp Hgb Conc 33.2 g/dL (32-36); Mean Corpuscular Hgb 31.3 pg (27.0-32.0); Mean Corpuscular Volume 94.3 fL (81-99); Platelet Count 198 K/mm3 (150-450); RBC Distribution Width CV 13.7 % (11.6-14.6); RBC Distribution Width SD 47.2 fl (35.1-43.9); Red Blood Count 4.38 M/mm3 (4.2-5.4); White Blood Count 6.5 K/mm3 (4.4-11.0)
[2024-08-29 19:07] LABS: Carbamazepine (Tegretol) 11.7 ug/mL (4.0-12.0)
[2024-08-29 19:27] LABS: ALB/GLOB Ratio 1.8 RATIO (0.9-2.4); AST(SGOT) 25 U/L (<=31); Alanine Aminotransfer ALT/SGPT 22 U/L (<=34); Albumin, Serum 4.2 g/dL (3.4-4.8); Alkaline Phosphatase 120 U/L (35-104); Anion Gap 10 (5-15); BUN 18 mg/dL (4-19); BUN/Creat Ratio 21.6 RATIO (10-20); Calcium,Total 9.2 mg/dL (7.6-11.0); Carbon Dioxide 26.7 mmol/L (21.0-32.0); Chloride 96 mmol/L (98-108); Creatinine, Serum 0.82 mg/dL (0.70-1.20); EST Glomerular Filtration Rate 71 (>60); Globulin 2.3 g/dL (2.2-4.2); Glucose 104 mg/dL (70-99); Potassium 4.2 mmol/L (3.3-5.1); Protein, Total 6.5 g/dL (5.9-8.4); Sodium Level 133 mmol/L (133-145); Total Bilirubin 0.24 mg/dL (0.00-1.30); Vitamin D,25 Hydroxy 32.8 ng/mL (30-100)
== END | disposition home or self-care (01) ==
LOC: MTLAB 13:49
PROVIDERS: PCP Family Medicine; Referring Provider Psychiatry & Neurology Neurology; Visit Provider Psychiatry & Neurology Neurology
DX: G50.0 Trigeminal neuralgia (principal); E55.9 Vitamin D deficiency, unspecified; G25.0 Essential tremor
CPT/HCPCS: 36415; 80053; 80156; 82306; 84443; 85027

== ENCOUNTER → 2024-10-31 | Outpatient (CLI) | payer MEDICARE, OTHER, SELFPAY ==
--- NOTE | 2024-10-31 10:35 | BD_ITS ---
PROCEDURE: DEXA BONE DENSITY STUDY 10/31/2024 REASON FOR EXAM: F, age 84 y/o . Postmenopausal. TECHNIQUE: DEXA BONE DENSITY STUDY COMPARISON: Prior study dated June 15, 2018. FINDINGS: BMD and T-SCORES Lumbar spine: 0.964 g/cm2, T-score -0.8 Levels: L1 through L4 Change from prior: Loss of 10.5%. Left femoral neck: 0.539 g/cm2, T-score -2.8 Femoral neck comparison data not recommended for monitoring change. Left total hip: 0.756 g/cm2, T-score -1.5 Change from prior: Loss of 3.5%. Right femoral neck: 0.589 g/cm2, T-score -2.3 Femoral neck comparison data not recommended for monitoring change. Right total hip: 0.750 g/cm2, T-score -1.6 Change from prior: Loss of 7.6%. The World Health Organization has defined the following categories based on bone density: Normal bone density: T-score equal to or greater than -1.0 Osteopenia: T-score between -1.0 and -2.5 Osteoporosis: T-score equal to or less than -2.5 The patient does meet the pharmacological treatment recommendations for prevention of osteoporosis. BD/Dexa Bone Density Study IMPRESSION: OSTEOPOROSIS. Recommend follow-up as clinically warranted. Reading Location: [place] [address]
== END | disposition home or self-care (01) ==
LOC: OPBD 10:29
PROVIDERS: PCP Family Medicine; Referring Provider Family Medicine; Visit Provider Family Medicine
DX: Z78.0 Asymptomatic menopausal state (principal)
CPT/HCPCS: 77080

== ENCOUNTER → 2025-01-26 | Outpatient (CLI) | payer MEDICARE, OTHER, SELFPAY ==
[2025-01-26 14:58] LABS: Hematocrit 41.5 % (37-47); Hemoglobin 13.5 g/dL (12.0-15.0); Immature Granulocytes Count 0.020 X10^3/uL (0.0-0.0); Mean Corp Hgb Conc 32.5 g/dL (32-36); Mean Corpuscular Volume 92.6 fL (81-99); Mean Platelet Vol. 9.9 fl (6.2-12.0); NRBC Flagged by Analyzer 0 % (0-5); Platelet Count 210 K/mm3 (150-450); RBC Distribution Width CV 13.8 % (11.6-14.6); RBC Distribution Width SD 47.3 fl (35.1-43.9); Red Blood Count 4.48 M/mm3 (4.2-5.4); White Blood Count 6.7 K/mm3 (4.4-11.0)
[2025-01-26 15:32] LABS: AST(SGOT) 21 U/L (<=31); Alanine Aminotransfer ALT/SGPT 17 U/L (<=34); Albumin, Serum 4.2 g/dL (3.4-4.8); Alkaline Phosphatase 100 U/L (35-104); Anion Gap 12 (5-15); BUN 19 mg/dL (4-19); BUN/Creat Ratio 23.8 RATIO (10-20); CRP 7.76 mg/L (0.0-3.0); Calcium,Total 9.4 mg/dL (7.6-11.0); Carbon Dioxide 24.8 mmol/L (21.0-32.0); Chloride 94 mmol/L (98-108); Globulin 2.1 g/dL (2.2-4.2); Glucose 76 mg/dL (70-99); Potassium 4.2 mmol/L (3.3-5.1)
== END | disposition home or self-care (01) ==
LOC: MTLAB 13:42
PROVIDERS: PCP Family Medicine; Referring Provider Internal Medicine Rheumatology; Visit Provider Internal Medicine Rheumatology
DX: M06.09 Rheumatoid arthritis without rheumatoid factor, multiple sites (principal); M17.0 Bilateral primary osteoarthritis of knee
CPT/HCPCS: 36415; 80053; 85025; 86140

== ENCOUNTER → 2025-02-21 | Outpatient (CLI) | payer MEDICARE, OTHER, SELFPAY ==
[2025-02-21 14:46] LABS: Carbamazepine (Tegretol) 6.5 ug/mL (4.0-12.0)
== END | disposition home or self-care (01) ==
LOC: MTLAB 10:24
PROVIDERS: PCP Family Medicine; Referring Provider Psychiatry & Neurology Neurology; Visit Provider Psychiatry & Neurology Neurology
DX: G50.0 Trigeminal neuralgia (principal)
CPT/HCPCS: 36415; 80156; 84295